=== PATIENT | male | born 1940 | race Caucasian/White ===

== ENCOUNTER → 2018-06-23 | Outpatient (CLI) | payer MEDICARE ==
--- NOTE | 2018-07-11 14:06 | ECHOF ---
Referral Reason:I10 Hypertension, E78.5 Hyperlipdemia MEASUREMENTS -------- HEIGHT: 172.7 cm WEIGHT: 117.0 kg BP: 132/102 RVIDd: 3.4 cm (< 3.3) IVSd: 1.4 cm (0.6 - 1.1) LVIDd: 5.7 cm (3.9 - 5.3) LVPWd: 1.4 cm (0.6 - 1.1) IVSs: 2.0 cm LVIDs: 4.2 cm LVPWs: 1.8 cm LA Diam: 3.5 cm (2.7 - 3.8) LAESV Index (A-L): 24.52 ml/m Ao Diam: 3.9 cm (2.0 - 3.7) AV Cusp: 2.2 cm (1.5 - 2.6) MV EXCURSION: 16.226 mm (> 18.000) MV EF SLOPE: 68 mm/s (70 - 150) EPSS: 1.0 cm MV E Nito: 0.54 m/s MV DecT: 298 ms MV A Nito: 1.09 m/s MV E/A Ratio: 0.49 AV maxP.87 mmHg AV meanP.75 mmHg RAP: 5.00 mmHg RVSP: 22.70 mmHg FINDINGS -------- Sinus rhythm. This was a technically adequate study. The left ventricular size is normal. There is moderate concentric left ventricular hypertrophy. O verall left ventricular systolic function is low-normal with, an EF between 50 - 55 %. The right ventricle is mildly enlarged. Normal LA size by volume 22+/-6 ml/m2. The right atrium is normal in size. There is mild aortic valve sclerosis. The mitral valve is normal. Mild tricuspid regurgitation present. Right ventricular systolic pressure is normal at < 35 mmHg. Trace/mild (physiologic) pulmonic regurgitation. The aortic root is dilated measuring 3.9cm. IVC Not well visulized. There is no pericardial effusion. CONCLUSIONS -------- 1. Sinus rhythm. 2. This was a technically adequate study. 3. The left ventricular size is normal. 4. There is moderate concentric left ventricular hypertrophy. 5. Overall left ventricular systolic function is low-normal with, an EF between 50 - 55 %. 6. The right ventricle is mildly enlarged. 7. Normal LA size by volume 22+/-6 ml/m2. 8. The right atrium is normal in size. 9. There is mild aortic valve sclerosis. 10. The mitral valve is normal. 11. Mild tricuspid regurgitation present. 12. Right ventricular systolic pressure is normal at < 35 mmHg. 13. Trace/mild (physiologic) pulmonic regurgitation. 14. The aortic root is dilated measuring 3.9cm. 15. IVC Not well visulized. 16. There is no pericardial effusion. SENIOR MANUFACTURING TEST ENGINEER: Marlena Thomas RDCS
== END ==
LOC: RADECHMAIN 15:38
PROVIDERS: ATTEND Internal Medicine Cardiovascular Disease
DX: I11.9 Hypertensive heart disease without heart failure (principal); I35.8 Other nonrheumatic aortic valve disorders; I07.1 Rheumatic tricuspid insufficiency; I37.1 Nonrheumatic pulmonary valve insufficiency
CPT/HCPCS: 93306

== ENCOUNTER 2020-12-22 06:24 | Inpatient (IN) | payer MEDICARE ==
[2020-12-22] MEDS ORDERED: ASPIRIN 81 MG PO STA (06:49)
[2020-12-22] MEDS ORDERED: LABETALOL 5 MG/ML VIAL MDV IVP STA (06:51)
--- NOTE | 2020-12-22 06:54 | ED ---
General Adult HPI <Lupillo Thacker - Last Filed: 12/22/20 08:19> - General Source: patient Mode of arrival: ambulatory Limitations: no limitations <Mike Regalado - Last Filed: 12/22/20 08:25> - General Chief complaint: Chest Pain Stated complaint: Chest Pain Time Seen by Provider: 12/22/20 06:33 - History of Present Illness Initial comments: 80-year-old male with a past medical history of hypertension presents to the emergency room for a chief complaint of chest pain. Patient reports he developed a left-sided chest pain that started approximately 6 hours prior to arrival. States it is sharp in nature. Patient does admit to rates the left shoulder. Patient denies nausea or diaphoresis. Does admit to slight shortness of breath. Patient states he always has high blood pressure in the 170-200 systolic. States he takes his medication but it does not seem to do anything.Patient has no other complaints at this time including abdominal pain, nausea or vomiting, headache, or visual changes. (Mike Regalado) - Related Data Home Medications Medication Instructions Recorded Confirmed Carvedilol [Coreg] 6.25 mg PO BID 12/22/20 12/22/20 Furosemide [Lasix] 20 mg PO DAILY 12/22/20 12/22/20 Olmesartan [Benicar] 20 mg PO DAILY 12/22/20 12/22/20 Allergies Allergy/AdvReac Type Severity Reaction Status Date / Time No Known Allergies Allergy Verified 12/22/20 08:17 Review of Systems ROS Other: All systems not noted in ROS Statement are negative. <Lupillo Thacker - Last Filed: 12/22/20 08:19> ROS Other: All systems not noted in ROS Statement are negative. <Mike Regalado - Last Filed: 12/22/20 08:25> ROS Statement: Those systems with pertinent positive or pertinent negative responses have been documented in the HPI. Past Medical History Past Medical History: Cancer, Hypertension Additional Past Medical History / Comment(s): ? SKIN CANCER ON SCALP REMOVED, STATES SOB WITH WALKING., OCCASIONAL CONSTIPATION. History of Any Multi-Drug Resistant Organisms: None Reported Past Surgical History: Back Surgery Past Anesthesia/Blood Transfusion Reactions: No Reported Reaction Past Psychological History: No Psychological Hx Reported Smoking Status: Former smoker Past Alcohol Use History: None Reported Past Drug Use History: None Reported - Past Family History Mother Family Medical History: Cancer Additional Family Medical History / Comment(s): BOWEL CANCER Father Family Medical History: Deep Vein Thrombosis (DVT) <Mike Regalado - Last Filed: 12/22/20 08:25> General Exam Limitations: no limitations General appearance: alert, in no apparent distress Head exam: Present: atraumatic, normocephalic, normal inspection Eye exam: Present: normal appearance, PERRL, EOMI. Absent: scleral icterus, conjunctival injection, periorbital swelling ENT exam: Present: normal exam, mucous membranes moist Neck exam: Present: normal inspection, full ROM. Absent: tenderness, meningismus, lymphadenopathy Respiratory exam: Present: normal lung sounds bilaterally. Absent: respiratory distress, wheezes, rales, rhonchi, stridor Cardiovascular Exam: Present: regular rate, normal rhythm, normal heart sounds. Absent: systolic murmur, diastolic murmur, rubs, gallop, clicks GI/Abdominal exam: Present: soft, normal bowel sounds. Absent: distended, tenderness, guarding, rebound, rigid Neurological exam: Present: alert <Mike Regalado - Last Filed: 12/22/20 08:25> Course Vital Signs 12/22/20 12/22/20 12/22/20 06:26 06:33 06:43 Temperature 97.6 F Pulse Rate 90 88 87 Pulse Rate [ Director Economic ] Respiratory 18 17 18 Rate Blood Pressure 206/157 189/151 188/139 O2 Sat by Pulse 94 L 96 97 Oximetry 12/22/20 12/22/20 12/22/20 06:48 07:37 08:06 Temperature Pulse Rate 96 90 Pulse Rate [ 88 Director Economic ] Respiratory 18 18 18 Rate Blood Pressure 162/133 159/85 O2 Sat by Pulse 97 97 Oximetry EKG Findings - EKG Comments: EKG Findings:: Atrial fibrillation with RVR, ventricular rate 123, QRS duration 94, QTC 498 <Mike Regalado - Last Filed: 12/22/20 08:25> Medical Decision Making - Lab Data Result diagrams: 12/22/20 06:52 12/22/20 06:52 <Lupillo Thacker - Last Filed: 12/22/20 08:19> - Lab Data Result diagrams: 12/22/20 06:52 12/22/20 06:52 <Mike Regalado - Last Filed: 12/22/20 08:25> - Medical Decision Making Patient reevaluated and reexamined by myself, Dr. Thacker. Patient resting comf ortably in bed. Heart rate improved to 96. Blood pressure 152 systolic. Patient and family updated on results and plan. I do agree with PA findings. This includes diagnostic interpretation and treatment plan. air sampling and monitoring shows A. fib with rate of 96. Patient was placed on nurse monitoring to evaluate for arrhythmias. (Lupillo Thacker) Patient presents very hypertensive with an initial blood pressure of 206/157. He was given 10 of labetalol and started on a 5 mg drip of Cardizem. This did improve his blood pressure slowly. EKG did show atrial fibrillation with RVR with a ventricular rate of 123. This is new onset for patient. CBC CMP unremarkable. Troponin 0.037. BNP 1350. Chest x-ray showed a small left pleural effusion. Patient started on low-dose heparin. Patient admitted to Dr. Bledsoe, does accept admission and requests patient be started on Lopressor 50 mg twice a day. Cardiology consulted. (Mike Regalado) - Lab Data Lab Results 12/22/20 12/22/20 12/22/20 Range/Units 06:52 06:52 06:52 WBC 12.1 H (3.8-10.6) k/uL RBC 5.68 (4.30-5.90) m/uL Hgb 16.4 (13.0-17.5) gm/dL Hct 49.3 (39.0-53.0) % MCV 86.8 (80.0-100.0) fL MCH 28.8 (25.0-35.0) pg MCHC 33.1 (31.0-37.0) g/dL RDW 14.6 (11.5-15.5) % Plt Count 283 (150-450) k/uL MPV 7.7 Neutrophils % 77 % Lymphocytes % 12 % Monocytes % 6 % Eosinophils % 3 % Basophils % 0 % Neutrophils # 9.4 H (1.3-7.7) k/uL Lymphocytes # 1.5 (1.0-4.8) k/uL Monocytes # 0.7 (0-1.0) k/uL Eosinophils # 0.3 (0-0.7) k/uL Basophils # 0.0 (0-0.2) k/uL PT 11.2 (9.0-12.0) sec INR 1.1 (<1.2) APTT 25.5 (22.0-30.0) sec Sodium 141 (137-145) mmol/L Potassium 3.9 (3.5-5.1) mmol/L Chloride 108 H (98-107) mmol/L Carbon Dioxide 21 L (22-30) mmol/L Anion Gap 12 mmol/L BUN 23 H (9-20) mg/dL Creatinine 1.22 (0.66-1.25) mg/dL Est GFR (CKD-EPI)AfAm 66 (>60 ml/min/1.73 sqM) Est GFR (CKD-EPI)NonAf 57 (>60 ml/min/1.73 sqM) Glucose 126 H (74-99) mg/dL Calcium 10.0 (8.4-10.2) mg/dL Magnesium 1.9 (1.6-2.3) mg/dL Total Bilirubin 1.2 (0.2-1.3) mg/dL AST 34 (17-59) U/L ALT 29 (4-49) U/L Alkaline Phosphatase 80 (38-126) U/L Troponin I (0.000-0.034) ng/mL NT-Pro-B Natriuret Pep pg/mL Total Protein 7.4 (6.3-8.2) g/dL Albumin 4.6 (3.5-5.0) g/dL 12/22/20 12/22/20 Range/Units 06:52 06:52 WBC (3.8-10.6) k/uL RBC (4.30-5.90) m/uL Hgb (13.0-17.5) gm/dL Hct (39.0-53.0) % MCV (80.0-100.0) fL MCH (25.0-35.0) pg MCHC (31.0-37.0) g/dL RDW (11.5-15.5) % Plt Count (150-450) k/uL MPV Neutrophils % % Lymphocytes % % Monocytes % % Eosinophils % % Basophils % % Neutrophils # (1.3-7.7) k/uL Lymphocytes # (1.0-4.8) k/uL Monocytes # (0-1.0) k/uL Eosinophils # (0-0.7) k/uL Basophils # (0-0.2) k/uL PT (9.0-12.0) sec INR (<1.2) APTT (22.0-30.0) sec Sodium (137-145) mmol/L Potassium (3.5-5.1) mmol/L Chloride (98-107) mmol/L Carbon Dioxide (22-30) mmol/L Anion Gap mmol/L BUN (9-20) mg/dL Creatinine (0.66-1.25) mg/dL Est GFR (CKD-EPI)AfAm (>60 ml/min/1.73 sqM) Est GFR (CKD-EPI)NonAf (>60 ml/min/1.73 sqM) Glucose (74-99) mg/dL Calcium (8.4-10.2) mg/dL Magnesium (1.6-2.3) mg/dL Total Bilirubin (0.2-1.3) mg/dL AST (17-59) U/L ALT (4-49) U/L Alkaline Phosphatase (38-126) U/L Troponin I 0.037 H* (0.000-0.034) ng/mL NT-Pro-B Natriuret Pep 1350 pg/mL Total Protein (6.3-8.2) g/dL Albumin (3.5-5.0) g/dL Critical Care Time Critical Care Time: Yes (33) <Mike Regalado - Last Filed: 12/22/20 08:25> Critical Care Time: 33 minutes of critical care time total is managing patient with multiple evaluations, multiple blood pressure evaluations, reviewing past medical history, treating hypertensive urgency, discussing case with admitting physician (Mike Regalado) Disposition <Lupillo Thacker - Last Filed: 12/22/20 08:19> Is patient prescribed a controlled substance at d/c from ED?: No Time of Disposition: 08:25 <Mike Regalado - Last Filed: 12/22/20 08:25> Clinical Impression: Chest pain, Hypertensive urgency, New onset atrial fibrillation, Elevated troponin Disposition: ADMITTED IP TO THIS HOSP Referrals: Isiah Appiah MD [Primary Care Provider] - 1-2 days
[2020-12-22 07:04] LABS: Basophils % (A) 0 %; Eosinophils # (A) 0.3 k/uL (0-0.7); Eosinophils % (A) 3 %; HCT 49.3 % (39.0-53.0); HGB 16.4 gm/dL (13.0-17.5); Lymphocytes # (A) 1.5 k/uL (1.0-4.8); Lymphocytes % (A) 12 %; MCH 28.8 pg (25.0-35.0); MCHC 33.1 g/dL (31.0-37.0); MCV 86.8 fL (80.0-100.0); Mean Platelet Volume 7.7; Monocytes # (A) 0.7 k/uL (0-1.0); Monocytes % (A) 6 %; Neutrophils # (A) 9.4 k/uL (1.3-7.7); Neutrophils % (A) 77 %; Platelet Count 283 k/uL (150-450); RBC 5.68 m/uL (4.30-5.90); RDW 14.6 % (11.5-15.5); WBC 12.1 k/uL (3.8-10.6)
[2020-12-22 07:17] LABS: Albumin 4.6 g/dL (3.5-5.0); Magnesium 1.9 mg/dL (1.6-2.3); Potassium 3.9 mmol/L (3.5-5.1); Total Bilirubin 1.2 mg/dL (0.2-1.3); Total Protein 7.4 g/dL (6.3-8.2)
--- NOTE | 2020-12-22 07:22 | XR ---
EXAMINATION TYPE: XR chest 2V DATE OF EXAM: 12/22/2020 COMPARISON: Chest x-ray May 04, 2017 HISTORY: Chest pain. TECHNIQUE: Frontal and lateral views of the chest are obtained. FINDINGS: There is slightly more prominent small left pleural effusion and/or pleural thickening. Ri ght lung remains clear. The cardiac silhouette size is stable and mildly enlarged. Postsurgical downey e to mid thoracic spine redemonstrated. IMPRESSION: Mild cardiomegaly with small to tiny left pleural effusion.
[2020-12-22] MEDS: DILTIAZEM 125 MG in SODIUM CHLORIDE 0.9% 100 ML IV SCH (07:36)
[2020-12-22 08:01] LABS: INR 1.1 (<1.2); Partial Thromboplastin Time 25.5 sec (22.0-30.0); Prothrombin Time 11.2 sec (9.0-12.0)
[2020-12-22] MEDS ORDERED: HEPARIN SODIUM 1,000 UN/ML (10ML VL) IV ONE (08:19)
[2020-12-22] MEDS: HEPARIN SOD,PORK IN 0.45% NACL 25,000 UNIT in 0.45% NACL 1 250ML.BAG IV SCH (08:39)
[2020-12-22] MEDS: FUROSEMIDE 20 MG TAB PO SCH (09:37)
[2020-12-22] MEDS: LOSARTAN 50 MG TAB PO SCH (09:37)
--- NOTE | 2020-12-22 10:57 | P.CRDCN ---
History of Present Illness History of present illness: HISTORY OF PRESENTING ILLNESS This is a pleasant 80-year-old male past medical history significant for hypertension, dyslipidemia former nicotine dependence, former alcohol use quit 40 years ago. 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 We have been asked to see in consultation for chest pain and new onset atrial fibrillation with rapid ventricular response. Patient is seen and examined in the emergency Department, no acute distress, with the bedside. Patient presents emergency department today after having an episode of left-sided chest pain. He describes the chest pain is sharp, nonradiating, nonexertional. He states it is similar to cast pain since that lasted about 4-5 hours, after he went to the bathroom and had a bowel movement his chest pain subsided. Denies any aggravating or alleviating factors. He did not take anything for the pain. He denies associated shortness of breath, palpitations, lightheadedness, dizziness, syncope, nausea, diaphoresis. However lately he states that he's been short of breath for many years now and has chronic dyspnea on exertion. He also states that he's been having difficulty controlling his blood pressure for some time now. He states that they've tried numerous antihypertensives. He denies a history of diabetes, stroke, MA or atrial fibrillation. He currently does not smoke or drink alcohol. Current home cardiac medications include Olmesartan 20 mg daily, Lasix 20 mg daily, carvedilol 6.25 mg twice a day. On admission patient started on IV Cardizem drip and IV heparin. Patient denies history of bleeding issues. DIAGNOSTICS EKG reveals atrial fibrillation with rapid ventricular response, heart rate 123, nonspecific STT wave abnormalities. No prior EKG to compare. Telemetry tracings indicate atrial fibrillation with better controlled rates heart rates 90-100 Chest xray slightly more prominent small left pleural effusion, cardiac silhouette is mildly enlarged. Laboratory reviewed, WBC 12.1, hemoglobin 16.4, platelets 283, sodium 141, potassium 3.9, BUN 23, serum creatinine 1.2, amylase 1.9, troponin elevated 0.037, proBNP 1350 REVIEW OF SYSTEMS At the time of my exam: CONSTITUTIONAL: Denies fever or chills. CARDIOVASCULAR: Positive chest pain, positive breath, positive dyspnea on exertion Denies orthopnea, PND or palpitations. RESPIRATORY: Denies cough. GASTROINTESTINAL: Denies abdominal pain, diarrhea, constipation, nausea or vomiting. MUSCULOSKELETAL: Denies myalgias. NEUROLOGIC: Denies numbness, tingling, headacbe or weakness. ENDOCRINE: Denies fatigue, weight change, polydipsia or polyurina. GENITOURINARY: Denies burning, hematuria or urgency with micturation. HEMATOLOGIC: Denies history of anemia or bleeding. PHYSICAL EXAMINATION CONSTITUTIONAL: No apparent distress. HEENT: Head is normocephalic. Pupils are equal, round. Sclerae anicteric. Mucous membranes of the mouth are moist. No JVD. No carotid bruit. CHEST EXAMINATION: Lungs are clear to auscultation. No chest wall tenderness is noted on palpation or with deep breathing. HEART EXAMINATION: Irregular rate and rhythm. S1, S2 heard. No murmurs, gallops or rub. ABDOMEN: Soft, nontender. Positive bowel sounds. EXTREMITIES: 2+ peripheral pulses, no lower extremity edema and no calf tenderness. SKIN: intact NEUROLOGIC EXAMINATION: Patient is awake, alert and oriented x3. ASSESSMENT Chest pain, atypical New onset paroxysmal atrial fibrillation -[id number] score 3 Hypertension Dyslipidemia Obesity PLAN -Trend troponin, Repeat EKG -Obtain 2D echocardiogram -Continue Cardizem drip -Continue metoprolol tartrate 50mg BID -Continue Losartan 100mg daily and Lasix 20mg daily -Will continue IV heparin drip while inpatient at this time, pending patient's chest pain and troponin trend. -Monitor renal function and electrolytes -Lipid panel -Atrial fibrillation, risk of stroke, and risk and benefit of anticoagulation was discussed with patient and . Patient is agreeable to anticoagulation at this time. -Check cost of Eliquis with case management- Per case management patient's Eliquis copay $40.50 -Further recommendations based on clinical course Nurse Practitioner note has been reviewed, I agree with a documented findings and plan of care. Patient was seen and examined. Past Medical History Past Medical History: Cancer, Hypertension Additional Past Medical History / Comment(s): ? SKIN CANCER ON SCALP REMOVED, STATES SOB WITH WALKING., OCCASIONAL CONSTIPATION. History of Any Multi-Drug Resistant Organisms: None Reported Past Surgical History: Back Surgery Past Anesthesia/Blood Transfusion Reactions: No Reported Reaction Past Psychological History: No Psychological Hx Reported Smoking Status: Former smoker Past Alcohol Use History: None Reported Past Drug Use History: None Reported - Past Family History Mother Family Medical History: Cancer Additional Family Medical History / Comment(s): BOWEL CANCER Father Family Medical History: Deep Vein Thrombosis (DVT) Medications and Allergies Home Medications Medication Instructions Recorded Confirmed Type Apixaban [Eliquis] 5 mg PO BID 30 Days #60 tab 12/22/20 Rx Carvedilol [Coreg] 6.25 mg PO BID 12/22/20 12/22/20 History Furosemide [Lasix] 20 mg PO DAILY 12/22/20 12/22/20 History Olmesartan [Benicar] 20 mg PO DAILY 12/22/20 12/22/20 History Allergies Allergy/AdvReac Type Severity Reaction Status Date / Time No Known Allergies Allergy Verified 12/22/20 08:17 Physical Exam Vitals: Vital Signs Temp Pulse Pulse Resp BP Pulse Ox 12/22/20 09:00 88 18 123/87 97 12/22/20 08:06 90 18 159/85 97 12/22/20 07:37 96 18 162/133 97 12/22/20 06:48 88 18 12/22/20 06:43 87 18 188/139 97 12/22/20 06:33 88 17 189/151 96 12/22/20 06:26 97.6 F 90 18 206/157 94 L Intake and Output 12/21/20 12/22/20 12/22/20 22:59 06:59 14:59 Other: Weight 106.594 kg Results 12/22/20 06:52 12/22/20 06:52 Cardiac Enzymes 12/22/20 12/22/20 Range/Units 06:52 06:52 AST 34 (17-59) U/L Troponin I 0.037 H* (0.000-0.034) ng/mL Coagulation 12/22/20 Range/Units 06:52 PT 11.2 (9.0-12.0) sec APTT 25.5 (22.0-30.0) sec CBC 12/22/20 Range/Units 06:52 WBC 12.1 H (3.8-10.6) k/uL RBC 5.68 (4.30-5.90) m/uL Hgb 16.4 (13.0-17.5) gm/dL Hct 49.3 (39.0-53.0) % Plt Count 283 (150-450) k/uL Comprehensive Metabolic Panel 12/22/20 Range/Units 06:52 Sodium 141 (137-145) mmol/L Potassium 3.9 (3.5-5.1) mmol/L Chloride 108 H (98-107) mmol/L Carbon Dioxide 21 L (22-30) mmol/L BUN 23 H (9-20) mg/dL Creatinine 1.22 (0.66-1.25) mg/dL Glucose 126 H (74-99) mg/dL Calcium 10.0 (8.4-10.2) mg/dL AST 34 (17-59) U/L ALT 29 (4-49) U/L Alkaline Phosphatase 80 (38-126) U/L Total Protein 7.4 (6.3-8.2) g/dL Albumin 4.6 (3.5-5.0) g/dL Current Medications Generic Name Dose Route Start Last Admin Trade Name Freq PRN Reason Stop Dose Admin Aspirin 325 mg 12/23/20 09:00 Aspirin 325 Mg Tab PO DAILY KENRICK Furosemide 20 mg 12/22/20 09:00 12/22/20 09:37 Furosemide 20 Mg Tab PO 20 mg DAILY KENRICK Administration Heparin Sodium (Porcine) 0 unit 12/22/20 08:19 Heparin Sodium 1,000 Un/Ml (10ml Vl) IV PER PROTOCOL PRN Low PTT Protocol Diltiazem HCl 125 mg/ Sodium 125 mls @ 5 mls/hr 12/22/20 07:15 12/22/20 07:36 Chloride IV 5 mg/hr .Q24H KENRICK 5 mls/hr Administration 5 MG/HR Heparin Sodium/Sodium Chloride 250 mls @ 10 mls/hr 12/22/20 08:30 12/22/20 08:39 25,000 unit/ Sodium Chloride IV 9.381 units/kg/hr .Q24H KENRICK 10 mls/hr Administration Protocol 9.381 UNITS/KG/HR Losartan Potassium 100 mg 12/22/20 09:00 12/22/20 09:37 Losartan 50 Mg Tab PO 100 mg DAILY KENRICK Administration Metoprolol Tartrate 50 mg 12/22/20 19:00 Metoprolol Tartrate 50 Mg Tab PO BID KENRICK Intake and Output 12/21/20 12/22/20 12/22/20 22:59 06:59 14:59 Other: Weight 106.594 kg 12/22/20 06:52 12/22/20 06:52
--- NOTE | 2020-12-22 17:04 | P.HPIM ---
History of Present Illness H&P Date: 12/22/20 Chief Complaint: Chest pain History of presenting complaint: This is a pleasant 80-year-old patient who follows with Dr. Appiah. Chronic stable medical conditions include hypertension, constipation, chronic low back pain from arthritis. Patient lost that the low some left-sided chest pain he described simply as pain. Nausea for good 4-5 hours. Did radiate to the left shoulder. Patient had some shortness of breath. No dizziness or lightheadedness. No perspiration. No edema. Appetite is fair. Because of his back uses a cane to get about. Patient has a problem with constipation having a bowel movement every 3-4 days. No fever no chills. Patient initial blood patient ER was 206/157. Was given IV labetalol. Patient also found to be in atrial fibrillation uncontrolled. Put on a Cardizem drip. Review of systems: GEN.: Tired EYES: None HEENT: None NECK: None RESPIRATORY: As above CARDIOVASCULAR: None GASTROINTESTINAL: As above] GENITOURINARY: None MUSCULOSKELETAL: Joint pains including the lower back LYMPHATICS: None HEMATOLOGICAL: None PSYCHIATRY: None NEUROLOGICAL: None Past medical history to include: Hypertension, constipation, arthritis Social history: . Did drink excessive alcohol in the past. Smoked for about 20 years stopped smoking about 40 years ago. 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 Family history: Bowel cancer Physical examination: VITAL SIGNS: 97.6, 90, 18, 206/157, 94% room air upon presentation GENERAL: BMI 34.7, reclining in bed, awake. EYES: Pupils equal. Conjunctiva normal. HEENT: External appearance of nose and ears normal, oral cavity grossly normal. NECK: JVD not raised; masses not palpable. HEART: First and second heart sounds are normal; no edema. LUNGS: Respiratory rate normal; clear to auscultation. MUSCULAR skeletal: Evidence of OA ABDOMEN: Soft, nontender, liver spleen not palpable, no masses palpable. PSYCH: Alert and oriented x3; mood and affect normal. NEUROLOGICAL: Cranial nerves grossly intact; no facial asymmetry, power and sensation grossly intact. LYMPHATICS: No lymph nodes palpable in the axilla and neck INVESTIGATIONS, reviewed in the clinical context: WBC 12.1 hemoglobin 16.4 platelets 283 potassium 3.9 creatinine 1.2 to Troponin I 0.037, 0.027, 0.025 EKG tracing personally reviewed by me-atrial flutter with a ventricular rate of 123. Possible nonspecific ST segment changes Chest x-ray film personally reviewed by me-cardiomegaly Assessment and plan: -Possible acute non-Q wave MN in a patient with risk factors include, age, ex- smoker, hypertension. Aspirin, Cozaar, Lopressor -Hypertensive urgency Given IV labetalol in the ER. Lopressor 50 mg twice a day added. Patient also some Cardizem drip for atrial flutter -New onset atrial flutter with rapid ventricular rate IV heparin, Cardizem drip, Lopressor 50 mg twice a day -Cardiomegaly on chest x-ray. Assess LV function. 2-D echocardiogram -Primary osteoarthritis multiple joints Pain medications as needed -Obesity BMI 34.7 Weight loss measures and follow with PCP Patient IV heparin, IV Cardizem drip, Lopressor. 2-D echocardiogram. Cardiology consulted. Care was discussed with the patient. Questions answered. Past Medical History Past Medical History: Cancer, Hypertension Additional Past Medical History / Comment(s): ? SKIN CANCER ON SCALP REMOVED, STATES SOB WITH WALKING., OCCASIONAL CONSTIPATION. History of Any Multi-Drug Resistant Organisms: None Reported Past Surgical History: Back Surgery Past Anesthesia/Blood Transfusion Reactions: No Reported Reaction Past Psychological History: No Psychological Hx Reported Smoking Status: Former smoker Past Alcohol Use History: None Reported Past Drug Use History: None Reported - Past Family History Mother Family Medical History: Cancer Additional Family Medical History / Comment(s): BOWEL CANCER Father Family Medical History: Deep Vein Thrombosis (DVT) Medications and Allergies Home Medications Medication Instructions Recorded Confirmed Type Apixaban [Eliquis] 5 mg PO BID 30 Days #60 tab 12/22/20 Rx Carvedilol [Coreg] 6.25 mg PO BID 12/22/20 12/22/20 History Furosemide [Lasix] 20 mg PO DAILY 12/22/20 12/22/20 History Olmesartan [Benicar] 20 mg PO DAILY 12/22/20 12/22/20 History Allergies Allergy/AdvReac Type Severity Reaction Status Date / Time No Known Allergies Allergy Verified 12/22/20 08:17 Physical Exam Vitals: Vital Signs Temp Pulse Pulse Resp BP Pulse Ox 12/22/20 09:00 88 18 123/87 97 12/22/20 08:06 90 18 159/85 97 12/22/20 07:37 96 18 162/133 97 12/22/20 06:48 88 18 12/22/20 06:43 87 18 188/139 97 12/22/20 06:33 88 17 189/151 96 12/22/20 06:26 97.6 F 90 18 206/157 94 L Intake and Output 12/21/20 12/22/20 12/22/20 22:59 06:59 14:59 Other: Weight 106.594 kg Results CBC & Chem 7: 12/22/20 06:52 12/22/20 06:52 Labs: Abnormal Lab Results - Last 24 Hours (Table) 12/22/20 12/22/20 12/22/20 Range/Units 06:52 06:52 06:52 WBC 12.1 H (3.8-10.6) k/uL Neutrophils # 9.4 H (1.3-7.7) k/uL Chloride 108 H (98-107) mmol/L Carbon Dioxide 21 L (22-30) mmol/L BUN 23 H (9-20) mg/dL Glucose 126 H (74-99) mg/dL Troponin I 0.037 H* (0.000-0.034) ng/mL
[2020-12-22] MEDS: HEPARIN SODIUM 1,000 UN/ML (10ML VL) IV PRN (17:30)
--- NOTE | 2020-12-22 18:22 | ECHOF ---
Referral Reason:LV function, new a fib MEASUREMENTS -------- HEIGHT: 175.3 cm WEIGHT: 106.6 kg BP: 123/87 RVIDd: 3.8 cm (< 3.3) IVSd: 1.6 cm (0.6 - 1.1) LVIDd: 5.6 cm (3.9 - 5.3) LVPWd: 1.6 cm (0.6 - 1.1) IVSs: 2.2 cm LVIDs: 3.8 cm LVPWs: 1.9 cm LA Diam: 4.2 cm (2.7 - 3.8) LAESV Index (A-L): 43.63 ml/m Ao Diam: 3.9 cm (2.0 - 3.7) AV Cusp: 2.1 cm (1.5 - 2.6) MV EXCURSION: 19.132 mm (> 18.000) MV EF SLOPE: 153 mm/s (70 - 150) EPSS: 1.3 cm AV maxP.62 mmHg AV meanP.04 mmHg RAP: 5.00 mmHg RVSP: 35.30 mmHg FINDINGS -------- Atrial fibrillation. This was a technically adequate study. The left ventricular size is normal. There is moderate concentric left ventricular hypertrophy. O verall left ventricular systolic function is moderate-severely impaired with, an EF between 30 - 35 % . The right ventricle is mild to moderately enlarged. LA is severely dilated >40 ml/m2 The right atrial size is normal. Interatrial and interventricular septum intact. There is mild aortic valve sclerosis. Peak/mean gradient across the Aortic Valve is 11.62mmHg / 6.0 4mmHg. Mild mitral annular calcification present. Mild mitral regurgitation is present. The tricuspid valve appears structurally normal. Mild tricuspid regurgitation present. There is m ild pulmonary hypertension. The right ventricular systolic pressure, as measured by Doppler, is 35. 30mmHg. Trace/mild (physiologic) pulmonic regurgitation. The aortic root is dilated measuring 3.9cm. IVC Not well visulized. There is no pericardial effusion. CONCLUSIONS -------- 1. Atrial fibrillation. 2. There is moderate concentric left ventricular hypertrophy. 3. Overall left ventricular systolic function is moderate-severely impaired with, an EF between 30 - 35 %. 4. The right ventricle is mild to moderately enlarged. 5. LA is severely dilated >40 ml/m2 6. There is mild aortic valve sclerosis. 7. Peak/mean gradient across the Aortic Valve is 11.62mmHg / 6.04mmHg. 8. Mild mitral regurgitation is present. 9. Mild tricuspid regurgitation present. 10. There is mild pulmonary hypertension. 11. Trace/mild (physiologic) pulmonic regurgitation. 12. The aortic root is dilated measuring 3.9cm. 13. There is no pericardial effusion. ONLINE USER EXPERIENCE STRATEGIST: Marlena Thomas RDCS
[2020-12-22] MEDS ORDERED: METOPROLOL TARTRATE 50 MG TAB PO SCH (19:00)
[2020-12-22] MEDS: METOPROLOL TARTRATE 50 MG TAB PO SCH (21:09)
[2020-12-23] MEDS: HEPARIN SOD,PORK IN 0.45% NACL 25,000 UNIT in 0.45% NACL 1 250ML.BAG IV SCH ×2 (02:29→20:09)
[2020-12-23] MEDS ORDERED: cloNIDine HCL 0.1 MG TAB PO STA (05:20)
[2020-12-23] MEDS: DILTIAZEM 125 MG in SODIUM CHLORIDE 0.9% 100 ML IV SCH (07:45)
[2020-12-23] MEDS: LOSARTAN 50 MG TAB PO SCH (07:55)
[2020-12-23] MEDS: ASPIRIN 81 MG PO SCH (07:55)
[2020-12-23] MEDS: lisinopriL 20 MG TAB PO SCH ×2 (07:55)
[2020-12-23] MEDS: METOPROLOL TARTRATE 50 MG TAB PO SCH ×2 (07:55→20:09)
[2020-12-23] MEDS: FUROSEMIDE 20 MG TAB PO SCH (07:55)
[2020-12-23 08:02] LABS: Calcium 9.6 mg/dL (8.4-10.2); Potassium 3.9 mmol/L (3.5-5.1)
[2020-12-23] MEDS ORDERED: ASPIRIN 325 MG TAB PO SCH (09:00)
[2020-12-23] MEDS: amLODIPine 5 MG TAB PO SCH (12:16)
[2020-12-23] MEDS: FUROSEMIDE 10 MG/ML 4 ML VIAL IV SCH ×2 (12:16→20:09)
--- NOTE | 2020-12-23 12:55 | P.PN ---
Subjective This is a pleasant 80-year-old male past medical history significant for hypertension, dyslipidemia former nicotine dependence, former alcohol use quit 40 years ago. 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 We have been asked to see in consultation for chest pain and new onset atrial fibrillation with rapid ventricular response. Patient is seen and examined in the emergency Department, no acute distress, with the bedside. Patient presents emergency department today after having an episode of left-sided chest pain. He describes the chest pain is sharp, nonradiating, nonexertional. He states it is similar to cast pain since that lasted about 4-5 hours, after he went to the bathroom and had a bowel movement his chest pain subsided. Denies any aggravating or alleviating factors. He did not take anything for the pain. He denies associated shortness of breath, palpitations, lightheadedness, dizziness, syncope, nausea, diaphoresis. However lately he states that he's been short of breath for many years now and has chronic dyspnea on exertion. He also states that he's been having difficulty controlling his blood pressure for some time now. He states that they've tried numerous antihypertensives. He denies a history of diabetes, stroke, [place] or atrial fibrillation. He currently does not smoke or drink alcohol. Current home cardiac medications include Olmesartan 20 mg daily, Lasix 20 mg daily, carvedilol 6.25 mg twice a day. On admission patient started on IV Cardizem drip and IV heparin. Patient denies history of bleeding issues. EKG reveals atrial fibrillation with rapid ventricular response, heart rate 123, nonspecific STT wave abnormalities. No prior EKG to compare. 12/23/2020: Patient seen at bedside, no acute distress. He continues to be short of breath. Blood pressure 177/101, heart rate 69, afebrile, maintaining oxygen saturations on 2 L nasal cannula. Telemetry reviewed patient continues to be in atrial f ibrillation with better controlled rates heart rate 70s to 80s. His IV Cardizem has been stopped. Echocardiogram revealed EF at 30-35%, RV is mild to moderately enlarged, LA severely dilated, mild mitral regurgitation, mild tricuspid regurgitation, mild pulmonary hypertension. G reviewed sodium 142, potassium 3.9, BUN 25, serum creatinine 1.4. Additional troponins were negative 2. Patient currently maintained on aspirin 81 mg daily, PO Lasix 20mg, losartan 100 mg daily, Toprol tartrate 100 mg twice a day, lisinopril 20 mg twice a day. PHYSICAL EXAMINATION CONSTITUTIONAL: No apparent distress. HEENT: Neck Supple. mild JVD CHEST EXAMINATION: Lungs mild crackles bilaterally No chest wall tenderness is noted on palpation or with deep breathing. HEART EXAMINATION: Irregular rate and rhythm. S1, S2 heard. No murmurs, gallops or rub. ABDOMEN: Soft, nontender. Positive bowel sounds. EXTREMITIES: 2+ peripheral pulses, no lower extremity edema and no calf tenderness. NEUROLOGIC EXAMINATION: Patient is awake, alert and oriented x3. 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 -Monitor renal function and electrolytes -Lipid panel pending -Atrial fibrillation, risk of stroke, and risk and benefit of anticoagulation was discussed with patient and . Patient is agreeable to anticoagulation at this time. -Check cost of Eliquis with case management- Per case management patient's Eliquis copay $40.50 -Further recommendations based on clinical course Nurse Practitioner note has been reviewed, I agree with a documented findings and plan of care. Patient was seen and examined. Objective - Vital Signs Vital signs: Vital Signs Temp 98 F 12/23/20 12:00 Pulse 77 12/23/20 12:00 Resp 16 12/23/20 12:00 BP 156/91 12/23/20 12:00 Pulse Ox 95 12/23/20 03:14 Intake & Output 12/22/20 12/23/20 12/23/20 18:59 06:59 18:59 Intake Total 88.667 116.567 70.005 Balance 88.667 116.567 70.005 Weight 106.594 kg 109.1 kg Intake: Intake, IV Titration 88.667 116.567 70.005 Amount Heparin Sod,Pork in 0.45% 88.667 116.567 70.005 NaCl 25,000 unit In 0.45 % NaCl 1 250ml.bag @ 9. 381 UNITS/KG/HR 10 mls/hr IV .Q24H [facility] Rx#: [id number] Other: # Voids 1 - Labs CBC & Chem 7: 12/22/20 06:52 12/23/20 06:55 Labs: Abnormal Lab Results - Last 24 Hours (Table) 12/22/20 12/22/20 12/23/20 Range/Units 16:56 22:18 06:55 APTT 33.0 H 46.5 H (22.0-30.0) sec BUN 25 H (9-20) mg/dL Creatinine 1.40 H (0.66-1.25) mg/dL Glucose 115 H (74-99) mg/dL 12/23/20 Range/Units 06:55 APTT 46.9 H (22.0-30.0) sec BUN (9-20) mg/dL Creatinine (0.66-1.25) mg/dL Glucose (74-99) mg/dL
[2020-12-23 13:23] LABS: Chol/HDL Ratio 4.61; LDL Cholesterol,Calculated 127.6 mg/dL (0.0-131.0); VLDL Calculation 20.4 mg/dL (5.00-40.00)
--- NOTE | 2020-12-23 16:57 | P.PN ---
Progress Note - Text Progress Note Date: 12/23/20 Chief Complaint: Chest pain History of presenting complaint: This is a pleasant 80-year-old patient who follows with Dr. Appiah. Chronic stable medical conditions include hypertension, constipation, chronic low back pain from arthritis. Patient lost that the low some left-sided chest pain he described simply as pain. Nausea for good 4-5 hours. Did radiate to the left shoulder. Patient had some shortness of breath. No dizziness or lightheadedness. No perspiration. No edema. Appetite is fair. Because of his back uses a cane to get about. Patient has a problem with constipation having a bowel movement every 3-4 days. No fever no chills. Patient initial blood patient ER was 206/157. Was given IV labetalol. Patient also found to be in atrial fibrillation uncontrolled. Put on a Cardizem drip. Admitted with accelerated hypertension, atrial fibrillation uncontrolled. Found to be in acute CHF. EF 30-35%. Placed on IV Lasix December 23: Blood pressure running high. Amlodipine added. No chest pain. Remains in atrial fibrillation. Heart rate in the 80s. Sitting up in a chair. Diet. Some shortness of breath. Started on IV Lasix. at the bedside Review of systems: Was done for constitutional, cardiovascular, GI, pulmonary. relevant finding as above Active Medications Amlodipine Besylate (Amlodipine 5 Mg Tab) 5 mg PO DAILY [facility] Last Admin: 12/23/20 12:16 Dose: 5 mg Documented by: Aspirin (Aspirin 81 Mg) 81 mg PO DAILY [facility] Last Admin: 12/23/20 07:55 Dose: 81 mg Documented by: Atorvastatin Calcium (Atorvastatin 40 Mg Tab) 40 mg PO DAILY [facility] Furosemide (Furosemide 10 Mg/Ml 4 Ml Vial) 40 mg IV Q12HR [facility] Last Admin: 12/23/20 12:16 Dose: 40 mg Documented by: Heparin Sodium (Porcine) (Heparin Sodium 1,000 Un/Ml (10ml Vl)) 0 unit IV PER PROTOCOL PRN; Protocol PRN Reason: Low PTT Last Admin: 12/22/20 17:30 Dose: 4,000 unit Documented by: Heparin Sodium/Sodium Chloride (25,000 unit/ Sodium Chloride) 250 mls @ 10 mls/hr IV .Q24H [facility]; Protocol Last Titration: 12/23/20 07:52 Dose: 12.2 units/kg/hr, 13.004 mls/hr Documented by: Losartan Potassium (Losartan 50 Mg Tab) 100 mg PO DAILY [facility] Last Admin: 12/23/20 07:55 Dose: 100 mg Documented by: Metoprolol Tartrate (Metoprolol Tartrate 50 Mg Tab) 100 mg PO BID [facility] Last Admin: 12/23/20 07:55 Dose: 100 mg Documented by: Past medical history to include: Hypertension, constipation, arthritis Social history: . Did drink excessive alcohol in the past. Smoked for about 20 years stopped smoking about 40 years ago. 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 Family history: Bowel cancer Physical examination: VITAL SIGNS: 98, 77, 16, 156/91, 95% on 2 L GENERAL: BMI 34.7, reclining in chair, awake EYES: Pupils equal. Conjunctiva normal. HEENT: External appearance of nose and ears normal, oral cavity grossly normal. NECK: JVD not raised; masses not palpable. HEART: Irregular heart sounds; no edema. LUNGS: Respiratory rate increased, decreased breath sounds MUSCULAR skeletal: Evidence of OA ABDOMEN: Soft, nontender, liver spleen not palpable, no masses palpable. PSYCH: Alert and oriented x3; mood and affect normal. NEUROLOGICAL: Cranial nerves grossly intact; no facial asymmetry, power and sensation grossly intact. INVESTIGATIONS, reviewed in the clinical context: 2-D echocardiogram: EF 30-35%. Moderate concentric LVH December 23: Potassium 3.9 creatinine 1.40 LDL 127 WBC 12.1 hemoglobin 16.4 platelets 283 potassium 3.9 creatinine 1.2 to Troponin I 0.037, 0.027, 0.025 EKG tracing personally reviewed by me-atrial flutter with a ventricular rate of 123. Possible nonspecific ST segment changes Chest x-ray film personally reviewed by in-cardiomegaly Assessment and plan: -Possible acute non-Q wave [place] in a patient with risk factors include, age, ex- smoker, hypertension. Aspirin, Cozaar, Lopressor -Accelerated hypertension: Uncontrolled Given IV labetalol in the ER. Increase Lopressor 100 mg twice a day . Cozaar 100 mg daily. Norvasc 5 mg daily added -New onset atrial flutter with rapid ventricular rate, now better controlled IV heparin, Cardizem drip-discontinued, Lopressor 100 mg twice a day -Acute congestive heart exacerbation from systolic dysfunction EF 30-35%: New diagnosis IV Lasix 40 mg every 12. Add Aldactone 25 mg a day -Primary osteoarthritis multiple joints Pain medications as needed -Obesity BMI 34.7 Weight loss measures and follow with PCP -IV heparin monitoring Follow PTT Continue IV heparin. Dose of Lopressor increased to 100 mg twice daily. Aldactone 25 mg daily added. IV Lasix 40 mg every 12. Discussed with patient and at the bedside.
[2020-12-23] MEDS: SPIRONOLACTONE 25 MG TAB PO SCH (17:35)
[2020-12-24] MEDS: LOSARTAN 50 MG TAB PO SCH (08:10)
[2020-12-24] MEDS: ATORVASTATIN 40 MG TAB PO SCH (08:10)
[2020-12-24] MEDS: METOPROLOL TARTRATE 50 MG TAB PO SCH ×2 (08:10→20:00)
[2020-12-24] MEDS: ASPIRIN 81 MG PO SCH (08:10)
[2020-12-24] MEDS: FUROSEMIDE 10 MG/ML 4 ML VIAL IV SCH ×2 (08:10→20:00)
[2020-12-24] MEDS: amLODIPine 5 MG TAB PO SCH (08:10)
[2020-12-24] MEDS: SPIRONOLACTONE 25 MG TAB PO SCH (08:10)
[2020-12-24 10:13] LABS: Calcium 9.9 mg/dL (8.4-10.2)
[2020-12-24 10:18] LABS: Potassium 2.8 mmol/L (3.5-5.1)
[2020-12-24] MEDS: HEPARIN SODIUM 1,000 UN/ML (10ML VL) IV PRN (10:33)
[2020-12-24] MEDS: POTASSIUM CHLORIDE ER 20 MEQ TAB.ER PO SCH ×3 (10:59→13:56)
[2020-12-24] MEDS ORDERED: cloNIDine 0.1 MG/24HR PATCH TRANSDERM SCH (11:00)
--- NOTE | 2020-12-24 13:29 | P.PN ---
Subjective Progress Note Date: 12/24/20 HISTORY OF PRESENT ILLNESS: his is a pleasant 80-year-old male past medical history significant for hypertension, dyslipidemia former nicotine dependence, former alcohol use quit 40 years ago. 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 We have been asked to see in consultation for chest pain and new onset atrial fibrillation with rapid ventricular response. Patient is seen and examined in the emergency Department, no acute distress, with the bedside. Patient presents emergency department today after having an episode of left-sided chest pain. He describes the chest pain is sharp, nonradiating, nonexertional. He states it is similar to cast pain since that lasted about 4-5 hours, after he went to the bathroom and had a bowel movement his chest pain subsided. Denies any aggravating or alleviating factors. He did not take anything for the pain. He denies associated shortness of breath, palpitations, lightheadedness, dizziness, syncope, nausea, diaphoresis. However lately he states that he's been short of breath for many years now and has chronic dyspnea on exertion. He also states that he's been having difficulty controlling his blood pressure for some time now. He states that they've tried numerous antihypertensives. He denies a history of diabetes, stroke, [place] or atrial fibrillation. He currently does not smoke or drink alcohol. Current home cardiac medications include Olmesartan 20 mg daily, Lasix 20 mg daily, carvedilol 6.25 mg twice a day. On admission patient started on IV Cardizem drip and IV heparin. Patient denies history of bleeding issues. EKG reveals atrial fibrillation with rapid ventricular response, heart rate 123, nonspecific STT wave abnormalities. No prior EKG to compare. 12/23/2020: Patient seen at bedside, no acute distress. He continues to be short of breath. Blood pressure 177/101, heart rate 69, afebrile, maintaining oxygen saturations on 2 L nasal cannula. Telemetry reviewed patient continues to be in atrial fibrillation with better controlled rates heart rate 70s to 80s. His IV Cardizem has been stopped. Echocardiogram revealed EF at 30-35%, RV is mild to moderately enlarged, LA severely dilated, mild mitral regurgitation, mild tricuspid regurgitation, mild pulmonary hypertension. G reviewed sodium 142, p otassium 3.9, BUN 25, serum creatinine 1.4. Additional troponins were negative 2. Patient currently maintained on aspirin 81 mg daily, PO Lasix 20mg, losartan 100 mg daily, Toprol tartrate 100 mg twice a day, lisinopril 20 mg twice a day. 12/24/2020 Patient examined this morning at the bedside. Patient denies chest pain. Patient continues to report shortness of breath. He remains on IV Lasix. He also remains on IV heparin. Telemetry reveals atrial fibrillation with controlled ventricular rate PHYSICAL EXAM: VITAL SIGNS: Reviewed. GENERAL: Well-developed in no acute distress. NECK: Supple. No JVD or thyromegaly LUNGS: Respirations even and unlabored. Lungs with bibasilar rales noted. HEART: Irregular rate and rhythm. S1 and S2 heard. EXTREMITIES: Normal range of motion. No clubbing or cyanosis. Peripheral pulses intact. 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 Will continue IV heparin due to cardiac catheterization. Patient will be started on Eliquis after his cardiac catheterization Further recommendations pending patient course Nurse practitioner note has been reviewed by physician. Signing provider agrees with the documented findings, assessment, and plan of care. Objective - Vital Signs Vital signs: Vital Signs Temp 98 F 12/24/20 11:36 Pulse 80 12/24/20 12:09 Resp 19 12/24/20 12:09 BP 157/74 12/24/20 11:36 Pulse Ox 97 12/24/20 11:36 Intake & Output 12/23/20 12/24/20 12/24/20 18:59 06:59 18:59 Intake Total 560.005 159.732 587.041 Balance 560.005 159.732 587.041 Weight 106.3 kg Intake: Intake, IV Titration 70.005 159.732 187.041 Amount Heparin Sod,Pork in 0.45% 70.005 159.732 187.041 NaCl 25,000 unit In 0.45 % NaCl 1 250ml.bag @ 9. 381 UNITS/KG/HR 10 mls/hr IV .Q24H [facility] Rx#: [id number] Oral 490 400 Other: Voiding Method Toilet Toilet # Voids 2 0 - Labs CBC & Chem 7: 12/22/20 06:52 12/24/20 08:44 Labs: Abnormal Lab Results - Last 24 Hours (Table) 12/24/20 12/24/20 Range/Units 08:44 08:44 APTT 40.8 H (22.0-30.0) sec Potassium 2.8 L (3.5-5.1) mmol/L BUN 31 H (9-20) mg/dL
--- NOTE | 2020-12-24 15:45 | P.PN ---
Progress Note - Text Progress Note Date: 12/24/20 Chief Complaint: Chest pain History of presenting complaint: This is a pleasant 80-year-old patient who follows with Dr. Appiah. Chronic stable medical conditions include hypertension, constipation, chronic low back pain from arthritis. Patient lost that the low some left-sided chest pain he described simply as pain. Nausea for good 4-5 hours. Did radiate to the left shoulder. Patient had some shortness of breath. No dizziness or lightheadedness. No perspiration. No edema. Appetite is fair. Because of his back uses a cane to get about. Patient has a problem with constipation having a bowel movement every 3-4 days. No fever no chills. Patient initial blood patient ER was 206/157. Was given IV labetalol. Patient also found to be in atrial fibrillation uncontrolled. Put on a Cardizem drip. Admitted with accelerated hypertension, atrial fibrillation uncontrolled. Found to be in acute CHF. EF 30-35%. Placed on IV Lasix December 23: Blood pressure running high. Amlodipine added. No chest pain. Remains in atrial fibrillation. Heart rate in the 80s. Sitting up in a chair. Diet. Some shortness of breath. Started on IV Lasix. at the bedside December 24: Sitting up in a chair. No chest pain. Plan is for cardiac catheterization on Saturday. Oral intake fair. Shortness of breath but her. Review of systems: Was done for constitutional, cardiovascular, GI, pulmonary. relevant finding as above Active Medications Amlodipine Besylate (Amlodipine 5 Mg Tab) 5 mg PO DAILY [facility] Last Admin: 12/24/20 08:10 Dose: 5 mg Documented by: Aspirin (Aspirin 81 Mg) 81 mg PO DAILY [facility] Last Admin: 12/24/20 08:10 Dose: 81 mg Documented by: Atorvastatin Calcium (Atorvastatin 40 Mg Tab) 40 mg PO DAILY [facility] Last Admin: 12/24/20 08:10 Dose: 40 mg Documented by: Clonidine HCl (Clonidine 0.1 Mg/24hr Patch) 1 patch TRANSDERM Q7D [facility] Last Admin: 12/24/20 11:25 Dose: 1 patch Documented by: Furosemide (Furosemide 10 Mg/Ml 4 Ml Vial) 40 mg IV Q12HR [facility] Last Admin: 12/24/20 08:10 Dose: 40 mg Documented by: Heparin Sodium (Porcine) (Heparin Sodium 1,000 Un/Ml (10ml Vl)) 0 unit IV PER PROTOCOL PRN; Protocol PRN Reason: Low PTT Last Admin: 12/24/20 10:33 Dose: 2,660 unit Documented by: Heparin Sodium/Sodium Chloride (25,000 unit/ Sodium Chloride) 250 mls @ 10 mls/hr IV .Q24H [facility]; Protocol Last Titration: 12/24/20 10:32 Dose: 14.07 units/kg/hr, 15 mls/hr Documented by: Losartan Potassium (Losartan 50 Mg Tab) 100 mg PO DAILY [facility] Last Admin: 12/24/20 08:10 Dose: 100 mg Documented by: Metoprolol Tartrate (Metoprolol Tartrate 50 Mg Tab) 100 mg PO BID [facility] Last Admin: 12/24/20 08:10 Dose: 100 mg Documented by: Spironolactone (Spironolactone 25 Mg Tab) 25 mg PO DAILY [facility] Last Admin: 12/24/20 08:10 Dose: 25 mg Documented by: Past medical history to include: Hypertension, constipation, arthritis Social history: . Did drink excessive alcohol in the past. Smoked for about 20 years stopped smoking about 40 years ago. 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 Conjunctiva normal. HEENT: External appearance of nose and ears normal, oral cavity grossly normal. NECK: JVD not raised; masses not palpable. HEART: Irregular heart sounds; no edema. LUNGS: Respiratory rate increased, decreased breath sounds MUSCULAR skeletal: Evidence of OA ABDOMEN: Soft, nontender, liver spleen not palpable, no masses palpable. PSYCH: Alert and oriented x3; mood and affect normal. NEUROLOGICAL: Cranial nerves grossly intact; no facial asymmetry, power and sensation grossly intact. INVESTIGATIONS, reviewed in the clinical context: December 24: Potassium 2.8 creatinine 1.16 magnesia 1.9 2-D echocardiogram: EF 30-35%. Moderate concentric LVH December 23: Potassium 3.9 creatinine 1.40 LDL 127 WBC 12.1 hemoglobin 16.4 platelets 283 potassium 3.9 creatinine 1.2 to Troponin I 0.037, 0.027, 0.025 EKG tracing personally reviewed by me-atrial flutter with a ventricular rate of 123. Possible nonspecific ST segment changes Chest x-ray film personally reviewed by me-cardiomegaly Assessment and plan: -acute non-Q wave [place] in a patient with risk factors include, age, ex-smoker, hypertension. Aspirin, Cozaar, Lopressor. IV heparin -Accelerated hypertension: Uncontrolled Given IV labetalol in the ER. Lopressor 100 mg twice a day . Cozaar 100 mg daily. Catapres patch 0.1. Amlodipine 5 mg daily. -New onset atrial flutter with rapid ventricular rate, now better controlled IV heparin, Cardizem drip-discontinued, Lopressor 100 mg twice a day -Acute congestive heart exacerbation from systolic dysfunction EF 30-35%: Slow to respond IV Lasix 40 mg every 12. Aldactone 25 mg a day -Primary osteoarthritis multiple joints Pain medications as needed -Obesity BMI 34.7 Weight loss measures and follow with PCP -IV heparin monitoring Follow PTT Continue IV heparin. Catapres 0.1 mg patch added today by cardiology. Follow BMP. Possible cardiac cath Saturday.
[2020-12-24] MEDS: HEPARIN SOD,PORK IN 0.45% NACL 25,000 UNIT in 0.45% NACL 1 250ML.BAG IV SCH (16:07)
[2020-12-25 08:49] LABS: Potassium 3.5 mmol/L (3.5-5.1)
[2020-12-25] MEDS: FUROSEMIDE 10 MG/ML 4 ML VIAL IV SCH (10:11)
[2020-12-25] MEDS: ASPIRIN 81 MG PO SCH (10:12)
[2020-12-25] MEDS: amLODIPine 5 MG TAB PO SCH (10:12)
[2020-12-25] MEDS: SPIRONOLACTONE 25 MG TAB PO SCH (10:12)
[2020-12-25] MEDS: METOPROLOL TARTRATE 50 MG TAB PO SCH ×3 (10:12→19:51)
[2020-12-25] MEDS: ATORVASTATIN 40 MG TAB PO SCH (10:12)
[2020-12-25] MEDS: LOSARTAN 50 MG TAB PO SCH (10:12)
--- NOTE | 2020-12-25 14:47 | P.PN ---
Subjective Progress Note Date: 12/25/20 HISTORY OF PRESENT ILLNESS: his is a pleasant 80-year-old male past medical history significant for hypertension, dyslipidemia former nicotine dependence, former alcohol use quit 40 years ago. 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 We have been asked to see in consultation for chest pain and new onset atrial fibrillation with rapid ventricular response. Patient is seen and examined in the emergency Department, no acute distress, with the bedside. Patient presents emergency department today after having an episode of left-sided chest pain. He describes the chest pain is sharp, nonradiating, nonexertional. He states it is similar to cast pain since that lasted about 4-5 hours, after he went to the bathroom and had a bowel movement his chest pain subsided. Denies any aggravating or alleviating factors. He did not take anything for the pain. He denies associated shortness of breath, palpitations, lightheadedness, dizziness, syncope, nausea, diaphoresis. However lately he states that he's been short of breath for many years now and has chronic dyspnea on exertion. He also states that he's been having difficulty controlling his blood pressure for some time now. He states that they've tried numerous antihypertensives. He denies a history of diabetes, stroke, IA or atrial fibrillation. He currently does not smoke or drink alcohol. Current home cardiac medications include Olmesartan 20 mg daily, Lasix 20 mg daily, carvedilol 6.25 mg twice a day. On admission patient started on IV Cardizem drip and IV heparin. Patient denies history of bleeding issues. EKG reveals atrial fibrillation with rapid ventricular response, heart rate 123, nonspecific STT wave abnormalities. No prior EKG to compare. 12/23/2020: Patient seen at bedside, no acute distress. He continues to be short of breath. Blood pressure 177/101, heart rate 69, afebrile, maintaining oxygen saturations on 2 L nasal cannula. Telemetry reviewed patient continues to be in atrial fibrillation with better controlled rates heart rate 70s to 80s. His IV Cardizem has been stopped. Echocardiogram revealed EF at 30-35%, RV is mild to moderately enlarged, LA severely dilated, mild mitral regurgitation, mild tricuspid regurgitation, mild pulmonary hypertension. G reviewed sodium 142, p otassium 3.9, BUN 25, serum creatinine 1.4. Additional troponins were negative 2. Patient currently maintained on aspirin 81 mg daily, PO Lasix 20mg, losartan 100 mg daily, Toprol tartrate 100 mg twice a day, lisinopril 20 mg twice a day. 12/24/2020 Patient examined this morning at the bedside. Patient denies chest pain. Patient continues to report shortness of breath. He remains on IV Lasix. He also remains on IV heparin. Telemetry reveals atrial fibrillation with controlled ventricular rate 12/25/2020 Patient examined at the bedside. Patient denies chest pain or pressure. He reports improvement in his shortness of breath. Patient's creatinine increased today to 1.58. He remains on IV Lasix. PHYSICAL EXAM: VITAL SIGNS: Reviewed. GENERAL: Well-developed in no acute distress. NECK: Supple. No JVD or thyromegaly LUNGS: Respirations even and unlabored. Lungs diminished HEART: Irregular rate and rhythm. S1 and S2 heard. EXTREMITIES: Normal range of motion. No clubbing or cyanosis. Peripheral pulses intact. 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 Begin oral Lasix 40 mg starting tomorrow Daily weights Accurate I&O Monitor kidney function Continue additional cardiac medications Clonidine patch for optimal blood pressure control Possible cardiac catheterization to be performed on Saturday depending on patient's kidney function Will continue IV heparin due to cardiac catheterization. Patient will be started on Eliquis after his cardiac catheterization Further recommendations pending patient course Nurse practitioner note has been reviewed by physician. Signing provider agrees with the documented findings, assessment, and plan of care. Objective - Vital Signs Vital signs: Vital Signs Temp 97.6 F 12/25/20 03:38 Pulse 90 12/25/20 03:38 Resp 19 12/25/20 03:38 BP 163/78 12/25/20 03:38 Pulse Ox 96 12/25/20 03:38 Intake & Output 12/24/20 12/25/20 12/25/20 18:59 06:59 18:59 Intake Total 907.498 360 Output Total 900 Balance 907.498 -900 360 Weight 105.8 kg Intake: Intake, IV Titration 267.498 Amount Heparin Sod,Pork in 0.45% 267.498 NaCl 25,000 unit In 0.45 % NaCl 1 250ml.bag @ 9. 381 UNITS/KG/HR 10 mls/hr IV .Q24H [facility] Rx#: [id number] Oral 640 360 Output: Urine 900 Other: Voiding Method Toilet Toilet # Voids 0 2 2 - Labs CBC & Chem 7: 12/22/20 06:52 12/25/20 07:22 Labs: Abnormal Lab Results - Last 24 Hours (Table) 12/24/20 12/25/20 12/25/20 Range/Units 16:48 07:22 07:22 APTT 50.4 H 57.4 H (22.0-30.0) sec BUN 39 H (9-20) mg/dL Creatinine 1.58 H (0.66-1.25) mg/dL
[2020-12-25] MEDS ORDERED: amLODIPine 5 MG TAB PO STA (14:50)
--- NOTE | 2020-12-25 14:53 | P.PN ---
Progress Note - Text Progress Note Date: 12/25/20 Chief Complaint: Chest pain History of presenting complaint: This is a pleasant 80-year-old patient who follows with Dr. Appiah. Chronic stable medical conditions include hypertension, constipation, chronic low back pain from arthritis. Patient lost that the low some left-sided chest pain he described simply as pain. Nausea for good 4-5 hours. Did radiate to the left shoulder. Patient had some shortness of breath. No dizziness or lightheadedness. No perspiration. No edema. Appetite is fair. Because of his back uses a cane to get about. Patient has a problem with constipation having a bowel movement every 3-4 days. No fever no chills. Patient initial blood patient ER was 206/157. Was given IV labetalol. Patient also found to be in atrial fibrillation uncontrolled. Put on a Cardizem drip. Admitted with accelerated hypertension, atrial fibrillation uncontrolled. Found to be in acute CHF. EF 30-35%. Placed on IV Lasix December 23: Blood pressure running high. Amlodipine added. No chest pain. Remains in atrial fibrillation. Heart rate in the 80s. Sitting up in a chair. Diet. Some shortness of breath. Started on IV Lasix. at the bedside December 24: Sitting up in a chair. No chest pain. Plan is for cardiac catheterization on Saturday. Oral intake fair. Shortness of breath but her. December 25: Sitting up. Comfortable. No chest pain. For cardiac catheterization tomorrow. at the bedside. Breathing stable. On IV Lasix. Review of systems: Was done for constitutional, cardiovascular, GI, pulmonary. relevant finding as above Active Medications Amlodipine Besylate (Amlodipine 5 Mg Tab) 5 mg PO DAILY [facility] Last Admin: 12/25/20 10:12 Dose: 5 mg Documented by: Aspirin (Aspirin 81 Mg) 81 mg PO DAILY [facility] Last Admin: 12/25/20 10:12 Dose: 81 mg Documented by: Atorvastatin Calcium (Atorvastatin 40 Mg Tab) 40 mg PO DAILY [facility] Last Admin: 12/25/20 10:12 Dose: 40 mg Documented by: Clonidine HCl (Clonidine 0.1 Mg/24hr Patch) 1 patch TRANSDERM Q7D [facility] Last Admin: 12/24/20 11:25 Dose: 1 patch Documented by: Furosemide (Furosemide 40 Mg Tab) 40 mg PO DAILY [facility] Heparin Sodium (Porcine) (Heparin Sodium 1,000 Un/Ml (10ml Vl)) 0 unit IV PER PROTOCOL PRN; Protocol PRN Reason: Low PTT Last Admin: 12/24/20 10:33 Dose: 2,660 unit Documented by: Heparin Sodium/Sodium Chloride (25,000 unit/ Sodium Chloride) 250 mls @ 10 mls/hr IV .Q24H [facility]; Protocol Last Titration: 12/24/20 17:17 Dose: 14.07 units/kg/hr, 14.998 mls/hr Documented by: Losartan Potassium (Losartan 50 Mg Tab) 100 mg PO DAILY [facility] Last Admin: 12/25/20 10:12 Dose: 100 mg Documented by: Metoprolol Tartrate (Metoprolol Tartrate 50 Mg Tab) 100 mg PO BID [facility] Last Admin: 12/25/20 10:12 Dose: 100 mg Documented by: Spironolactone (Spironolactone 25 Mg Tab) 25 mg PO DAILY [facility] Last Admin: 12/25/20 10:12 Dose: 25 mg Documented by: Past medical history to include: Hypertension, constipation, arthritis Social history: . Did drink excessive alcohol in the past. Smoked for about 20 years stopped smoking about 40 years ago. 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 Family history: Bowel cancer Physical examination: VITAL SIGNS: 97.6, 90, 19, 163/78, 96% on 2 L GENERAL: Sitting up in chair, awake EYES: Pupils equal. Conjunctiva normal. NECK: JVD not raised; masses not palpable. HEART: Irregular heart sounds; no edema. LUNGS: Respiratory rate increased, decreased breath sounds MUSCULAR skeletal: Evidence of OA ABDOMEN: Soft, nontender, liver spleen not palpable, no masses palpable. PSYCH: Alert and oriented x3; mood and affect normal. INVESTIGATIONS, reviewed in the clinical context: December 25: Potassium 3.5 creatinine 1.58 December 24: Potassium 2.8 creatinine 1.16 magnesia 1.9 2-D echocardiogram: EF 30-35%. Moderate concentric LVH December 23: Potassium 3.9 creatinine 1.40 LDL 127 WBC 12.1 hemoglobin 16.4 platelets 283 potassium 3.9 creatinine 1.2 to Troponin I 0.037, 0.027, 0.025 EKG tracing personally reviewed by me-atrial flutter with a ventricular rate of 123. Possible nonspecific ST segment changes Chest x-ray film personally reviewed by me-cardiomegaly Assessment and plan: -acute non-Q wave MT in a patient with risk factors include, age, ex-smoker, hyp ertension. Aspirin, Cozaar, Lopressor. IV heparin. Pending cardiac catheterization -Accelerated hypertension: Uncontrolled Given IV labetalol in the ER. Lopressor 100 mg twice a day . Cozaar 100 mg daily. Catapres patch 0.1. Amlodipine 5 mg daily. -New onset atrial flutter with rapid ventricular rate, now better controlled IV heparin, Cardizem drip-discontinued, Lopressor 100 mg twice a day -Acute congestive heart exacerbation from systolic dysfunction EF 30-35%: Slow to respond IV Lasix 40 mg every 12. Aldactone 25 mg a day -Primary osteoarthritis multiple joints Pain medications as needed -Obesity BMI 34.7 Weight loss measures and follow with PCP -IV heparin monitoring Follow PTT -Chronic kidney disease, stage III likely nephrosclerosis Follow renal function Continue IV heparin. Will DC Catapres patch. Add 50 mg Lopressor in the afternoon and increase amlodipine to 10 mg daily given an extra 5 mg dose today. Lasix changed to by mouth -hold morning dose of Lasix pending labs.
[2020-12-26] MEDS: amLODIPine 10 MG TAB PO SCH (08:37)
[2020-12-26] MEDS: METOPROLOL TARTRATE 50 MG TAB PO SCH ×3 (08:37→20:10)
[2020-12-26] MEDS: SPIRONOLACTONE 25 MG TAB PO SCH (08:37)
[2020-12-26] MEDS: LOSARTAN 50 MG TAB PO SCH (08:37)
[2020-12-26] MEDS: ATORVASTATIN 40 MG TAB PO SCH (08:37)
[2020-12-26] MEDS: HEPARIN SOD,PORK IN 0.45% NACL 25,000 UNIT in 0.45% NACL 1 250ML.BAG IV SCH (08:42)
[2020-12-26 08:54] LABS: Calcium 10.2 mg/dL (8.4-10.2); Potassium 3.6 mmol/L (3.5-5.1)
[2020-12-26] MEDS ORDERED: FUROSEMIDE 40 MG TAB PO SCH (09:00)
[2020-12-26] MEDS: ASPIRIN 81 MG PO SCH (09:00)
[2020-12-26] MEDS ORDERED: ATORVASTATIN 80 MG TAB PO STA (09:07)
[2020-12-26] MEDS ORDERED: NITROGLYCERIN SL TABS 0.4 MG TAB SUBLINGUAL PRN (09:07)
[2020-12-26] MEDS ORDERED: ASPIRIN 325 MG TAB PO STA (09:07)
[2020-12-26] MEDS ORDERED: ALPRAZolam 0.25 MG TAB PO PRN (09:07)
[2020-12-26] MEDS ORDERED: ALPRAZolam 0.5 MG TAB PO PRN (09:07)
[2020-12-26] MEDS ORDERED: SODIUM CHLORIDE 0.9% 1,000 ML in EMPTY BAG 1 BAG IV ONE (09:07)
[2020-12-26] MEDS ORDERED: ATORVASTATIN 40 MG TAB PO STA (09:12)
[2020-12-26] MEDS ORDERED: LIDOCAINE 1% INJ 10MG/ML (20 ML MDV) ONE (10:26)
[2020-12-26] MEDS ORDERED: VERAPAMIL 2.5 MG/ML 2 ML AMP ONE (10:26)
[2020-12-26] MEDS ORDERED: fentaNYL (PF) 50 MCG/ML 2 ML AMP ONE (10:46)
[2020-12-26] MEDS ORDERED: IV FLUID CONTINUATION 1,000 ML IV ONE (10:53)
[2020-12-26] MEDS ORDERED: MIDAZOLAM 2 MG/2 ML VIAL IV ONE (11:22)
[2020-12-26] MEDS ORDERED: fentaNYL (PF) 50 MCG/ML 2 ML AMP IV ONE (11:22)
[2020-12-26] MEDS ORDERED: LIDOCAINE 1% INJ 10MG/ML (20 ML MDV) SQ ONE (11:25)
[2020-12-26] MEDS ORDERED: HEPARIN SODIUM 1,000 UN/ML (10ML VL) ONE (11:28)
[2020-12-26] MEDS: VERAPAMIL SYRINGE (5 MG/10 ML) INTRAARTER ONE ×2 (11:30→11:41)
[2020-12-26] MEDS ORDERED: IOPAMIDOL-370 125ML BTL INJ ONE (11:39)
[2020-12-26] MEDS ORDERED: RX INFO: IV CONTRAST WAS GIVEN 1 EACH MISC MISCELLANE PRN (11:51)
--- NOTE | 2020-12-26 11:58 | P.CARDCATH ---
Date of Procedure: 12/26/20 Preoperative Diagnosis: Chest pain with positive troponin and also new-onset atrial fibrillation Postoperative Diagnosis: Normal coronary arteries Procedure(s) Performed: Left heart catheterization without left ventriculography Description of Procedure: HISTORY: This is a 80-year-old gentleman with history of hypertension hyperlipidemia and previous history of smoking who was admitted to the hospital with the onset atrial fibrillation. Patient first troponin was abnormal and has been having some chest pain. In view of that patient is advised to have a cardiac catheterization for definitive diagnosis CONSENT:I have discussed the risks, benefits and alternative therapies for the above-mentioned procedure and for both sedation/analgesia as well as necessary blood product administration, if indicated, as they pertain to this patient. The patient has indicated understanding and acceptance of the risks and procedures discussed. PROCEDURE: Patient was brought to the lab in a fasting state. Patient was given some IV sedation. The right wrist is infiltrated with lidocaine and right radial artery was entered using Seldinger technique. A 6-Bengali catheter was left in place and selective coronary arteriography was performed. Patient tolerated the procedure well. TR band was applied for hemostasis. No immediate complications were noted and patient was transferred to [facility] in a stable condition Conscious Sedation: Versed 1mg Fentanyl 50 g Duration 16minutes HEMODYNAMICS: The aortic pressure is about 160/80. Left ankle end-diastolic pressure is about 8-10. No gradient across the aortic valve SELECTIVE CORONARY ARTERIOGRAPHY: LEFT MAIN: Normal length and free of occlusive disease THE LEFT ANTERIOR DESCENDING CORONARY ARTERY: Good caliber vessel giving rise to good-sized diagonal and septal branches. Free of occlusive disease THE LEFT CIRCUMFLEX AND IS CORONARY ARTERY: . Good caliber vessel with mild disease in the proximal portion THE RIGHT CORONARY ARTERY: And vessel giving rise to PDA and PLV and free of occlusive disease LEFT VENTRICULOGRAPHY: . Performed FINAL IMPRESSION: Mild coronary artery disease. Normal end-diastolic pressure PLAN: Maximum medical therapy. This factor modification PROGNOSIS: Fair
--- NOTE | 2020-12-26 14:13 | P.PN ---
Subjective Progress Note Date: 12/26/20 HISTORY OF PRESENT ILLNESS: his is a pleasant 80-year-old male past medical history significant for hypertension, dyslipidemia former nicotine dependence, former alcohol use quit 40 years ago. 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 We have been asked to see in consultation for chest pain and new onset atrial fibrillation with rapid ventricular response. Patient is seen and examined in the emergency Department, no acute distress, with the bedside. Patient presents emergency department today after having an episode of left-sided chest pain. He describes the chest pain is sharp, nonradiating, nonexertional. He states it is similar to cast pain since that lasted about 4-5 hours, after he went to the bathroom and had a bowel movement his chest pain subsided. Denies any aggravating or alleviating factors. He did not take anything for the pain. He denies associated shortness of breath, palpitations, lightheadedness, dizziness, syncope, nausea, diaphoresis. However lately he states that he's been short of breath for many years now and has chronic dyspnea on exertion. He also states that he's been having difficulty controlling his blood pressure for some time now. He states that they've tried numerous antihypertensives. He denies a history of diabetes, stroke, MD or atrial fibrillation. He currently does not smoke or drink alcohol. Current home cardiac medications include Olmesartan 20 mg daily, Lasix 20 mg daily, carvedilol 6.25 mg twice a day. On admission patient started on IV Cardizem drip and IV heparin. Patient denies history of bleeding issues. EKG reveals atrial fibrillation with rapid ventricular response, heart rate 123, nonspecific STT wave abnormalities. No prior EKG to compare. 12/23/2020: Patient seen at bedside, no acute distress. He continues to be short of breath. Blood pressure 177/101, heart rate 69, afebrile, maintaining oxygen saturations on 2 L nasal cannula. Telemetry reviewed patient continues to be in atrial fibrillation with better controlled rates heart rate 70s to 80s. His IV Cardizem has been stopped. Echocardiogram revealed EF at 30-35%, RV is mild to moderately enlarged, LA severely dilated, mild mitral regurgitation, mild tricuspid regurgitation, mild pulmonary hypertension. G reviewed sodium 142, p otassium 3.9, BUN 25, serum creatinine 1.4. Additional troponins were negative 2. Patient currently maintained on aspirin 81 mg daily, PO Lasix 20mg, losartan 100 mg daily, Toprol tartrate 100 mg twice a day, lisinopril 20 mg twice a day. 12/24/2020 Patient examined this morning at the bedside. Patient denies chest pain. Patient continues to report shortness of breath. He remains on IV Lasix. He also remains on IV heparin. Telemetry reveals atrial fibrillation with controlled ventricular rate 12/25/2020 Patient examined at the bedside. Patient denies chest pain or pressure. He reports improvement in his shortness of breath. Patient's creatinine increased today to 1.58. He remains on IV Lasix. 12/26/2020 Patient examined this morning at the bedside. Patient denies chest pain or pressure. He denies shortness of breath. Patient's creatinine improved today to 1.4. Vital signs are stable. PHYSICAL EXAM: VITAL SIGNS: Reviewed. GENERAL: Well-developed in no acute distress. NECK: Supple. No JVD or thyromegaly LUNGS: Respirations even and unlabored. Lungs diminished HEART: Irregular rate and rhythm. S1 and S2 heard. EXTREMITIES: Normal range of motion. No clubbing or cyanosis. Peripheral pulses intact. 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 Rodriguez Patient may begin Eliquis tonight after cardiac catheterization at 2100 Further recommendations pending patient course Nurse practitioner note has been reviewed by physician. Signing provider agrees with the documented findings, assessment, and plan of care. Objective - Vital Signs Vital signs: Vital Signs Temp 97.9 F 12/26/20 07:50 Pulse 76 12/26/20 08:00 Resp 18 12/26/20 08:00 BP 171/136 12/26/20 07:50 Pulse Ox 97 12/26/20 07:50 Intake & Output 12/25/20 12/26/20 12/26/20 18:59 06:59 18:59 Intake Total 712.502 301.996 Balance 712.502 301.996 Weight 106.3 kg Intake: IV 275 Intake, IV Titration 232.502 26.996 Amount Heparin Sod,Pork in 0.45% 232.502 26.996 NaCl 25,000 unit In 0.45 % NaCl 1 250ml.bag @ 9. 381 UNITS/KG/HR 10 mls/hr IV .Q24H [facility] Rx#: [id number] Oral 480 Other: Voiding Method Toilet Toilet Toilet # Voids 2 2 - Labs CBC & Chem 7: 12/22/20 06:52 12/27/20 08:27 Labs: Abnormal Lab Results - Last 24 Hours (Table) 12/26/20 12/26/20 Range/Units 07:50 07:50 APTT 62.0 H (22.0-30.0) sec BUN 41 H (9-20) mg/dL Creatinine 1.47 H (0.66-1.25) mg/dL Glucose 103 H (74-99) mg/dL
[2020-12-26] MEDS: SODIUM CHLORIDE 0.9% 1,000 ML IV SCH (16:20)
--- NOTE | 2020-12-26 18:55 | P.PN ---
Progress Note - Text Progress Note Date: 12/26/20 Chief Complaint: Chest pain History of presenting complaint: This is a pleasant 80-year-old patient who follows with Dr. Appiah. Chronic stable medical conditions include hypertension, constipation, chronic low back pain from arthritis. Patient lost that the low some left-sided chest pain he described simply as pain. Nausea for good 4-5 hours. Did radiate to the left shoulder. Patient had some shortness of breath. No dizziness or lightheadedness. No perspiration. No edema. Appetite is fair. Because of his back uses a cane to get about. Patient has a problem with constipation having a bowel movement every 3-4 days. No fever no chills. Patient initial blood patient ER was 206/157. Was given IV labetalol. Patient also found to be in atrial fibrillation uncontrolled. Put on a Cardizem drip. Admitted with accelerated hypertension, atrial fibrillation uncontrolled. Found to be in acute CHF. EF 30-35%. Placed on IV Lasix December 23: Blood pressure running high. Amlodipine added. No chest pain. Remains in atrial fibrillation. Heart rate in the 80s. Sitting up in a chair. Diet. Some shortness of breath. Started on IV Lasix. at the bedside December 24: Sitting up in a chair. No chest pain. Plan is for cardiac catheterization on Saturday. Oral intake fair. Shortness of breath but her. December 25: Sitting up. Comfortable. No chest pain. For cardiac catheterization tomorrow. at the bedside. Breathing stable. On IV Lasix. December 26: Had cardiac catheterization earlier today. Minimal disease. Blood pressure better controlled. at the bedside. Care was discussed with length and medications and the radiation blood pressure is discussed. Atrial flutter controlled Review of systems: Was done for constitutional, cardiovascular, GI, pulmonary. relevant finding as above Active Medications Alprazolam (Alprazolam 0.25 Mg Tab) 0.25 mg PO Q6HR PRN PRN Reason: Mild Anxiety Alprazolam (Alprazolam 0.5 Mg Tab) 0.5 mg PO Q6HR PRN PRN Reason: Moderate Anxiety Amlodipine Besylate (Amlodipine 10 Mg Tab) 10 mg PO DAILY [facility] Last Admin: 12/26/20 08:37 Dose: 10 mg Documented by: Apixaban (Apixaban 5 Mg Tab) 5 mg PO BID KENRICK; Protocol Aspirin (Aspirin 81 Mg) 81 mg PO DAILY [facility] Last Admin: 12/26/20 09:00 Dose: Not Given Documented by: Atorvastatin Calcium (Atorvastatin 40 Mg Tab) 40 mg PO DAILY [facility] Last Admin: 12/26/20 08:37 Dose: 40 mg Documented by: Heparin Sodium (Porcine) 10, (000 unit/ Sodium Chloride) 1,001 mls @ 999 mls/hr IRRIGATION ONCE PRN PRN Reason: INTRA-OP Stop: 12/27/20 23:00 Heparin Sodium (Porcine) 2,500 (unit/ Sodium Chloride) 250.5 mls @ 250 mls/hr IRRIGATION ONCE PRN PRN Reason: INTRA-OP Stop: 12/27/20 23:00 Sodium Chloride (Saline 0.9%) 1,000 mls @ 75 mls/hr IV .[id number] [facility] Last Admin: 12/26/20 16:20 Dose: Not Given Documented by: Losartan Potassium (Losartan 50 Mg Tab) 100 mg PO DAILY [facility] Last Admin: 12/26/20 08:37 Dose: 100 mg Documented by: Metoprolol Tartrate (Metoprolol Tartrate 50 Mg Tab) 100 mg PO BID [facility] Last Admin: 12/26/20 08:37 Dose: 100 mg Documented by: Metoprolol Tartrate (Metoprolol Tartrate 50 Mg Tab) 50 mg PO DAILY@1300 [facility] Last Admin: 12/26/20 15:21 Dose: Not Given Documented by: Miscellaneous Information (Rx Info: Iv Contrast Was Given 1 Each Misc) 1 each MISCELLANE DAILY PRN PRN Reason: Per Protocol Stop: 12/28/20 11:51 Nitroglycerin (Nitroglycerin Sl Tabs 0.4 Mg Tab) 0.4 mg SUBLINGUAL Q5M PRN PRN Reason: Chest Pain Past medical history to include: Hypertension, constipation, arthritis Social history: . Did drink excessive alcohol in the past. Smoked for about 20 years stopped smoking about 40 years ago. 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 Conjunctiva normal. NECK: JVD not raised; masses not palpable. HEART: Irregular heart sounds; no edema. LUNGS: Respiratory rate increased, decreased breath sounds MUSCULAR skeletal: Evidence of OA ABDOMEN: Soft, nontender, liver spleen not palpable, no masses palpable. PSYCH: Alert and oriented x3; mood and affect normal. INVESTIGATIONS, reviewed in the clinical context: December 26: Potassium 3.6 BUN 41-1.47 Cardiac catheterization: Mild CAD December 25: Potassium 3.5 creatinine 1.58 December 24: Potassium 2.8 creatinine 1.16 magnesia 1.9 2-D echocardiogram: EF 30-35%. Moderate concentric LVH December 23: Potassium 3.9 creatinine 1.40 LDL 127 WBC 12.1 hemoglobin 16.4 platelets 283 potassium 3.9 creatinine 1.2 to Troponin I 0.037, 0.027, 0.025 EKG tracing personally reviewed by me-atrial flutter with a ventricular rate of 123. Possible nonspecific ST segment changes Chest x-ray film personally reviewed by me-cardiomegaly Assessment and plan: -acute non-Q wave MA in a patient with risk factors include, age, ex-smoker, hypertension. Aspirin, Cozaar, Lopressor. IV heparin. Pending cardiac catheterization -Mild CAD [per cardiac catheterization] -Accelerated hypertension: Controlled Given IV labetalol in the ER. Lopressor 100 mg twice a day and 50 mg at 1 PM . Cozaar 100 mg daily. Amlodipine 10 mg daily. -New onset atrial flutter with rapid ventricular rate, now better controlled IV heparin, Cardizem drip-discontinued, Lopressor 100 mg twice a day -Acute congestive heart exacerbation from systolic dysfunction EF 30-35%: Better IV Lasix 40 mg every 12-discontinued. Aldactone 25 mg a day -Primary osteoarthritis multiple joints Pain medications as needed -Obesity BMI 34.7 Weight loss measures and follow with PCP -IV heparin monitoring Follow PTT -Chronic kidney disease, stage III likely nephrosclerosis Follow renal function Will DC the afternoon dose of Lopressor. Aldactone 25 mg from tomorrow morning. Patient getting some is today. Repeat labs in the morning. Care was discussed at length with the patient and the at the bedside. Questions answered. Total time spent today about 40 minutes with over 20 minutes of discussion.
[2020-12-26] MEDS: APIXABAN 5 MG TAB PO SCH (20:09)
[2020-12-27] MEDS: SODIUM CHLORIDE 0.9% 1,000 ML IV SCH ×2 (03:50→11:56)
[2020-12-27] MEDS ORDERED: HEPARIN SODIUM,PORCINE 2,500 UNIT in SODIUM CHLORIDE 0.9% 250 ML IRRIGATION PRN (07:00)
[2020-12-27] MEDS ORDERED: HEPARIN SODIUM,PORCINE 10,000 UNIT in SODIUM CHLORIDE 0.9% 1,000 ML IRRIGATION PRN (07:00)
[2020-12-27] MEDS: ASPIRIN 81 MG PO SCH (08:24)
[2020-12-27] MEDS: APIXABAN 5 MG TAB PO SCH (08:24)
[2020-12-27] MEDS: ATORVASTATIN 40 MG TAB PO SCH (08:24)
[2020-12-27] MEDS: amLODIPine 10 MG TAB PO SCH (08:24)
[2020-12-27] MEDS: LOSARTAN 50 MG TAB PO SCH (08:25)
[2020-12-27] MEDS: METOPROLOL TARTRATE 50 MG TAB PO SCH (08:25)
[2020-12-27 08:40] VITALS: TEMP 98.4
[2020-12-27] MEDS ORDERED: SPIRONOLACTONE 25 MG TAB PO SCH (09:00)
[2020-12-27 09:48] LABS: Calcium 10.1 mg/dL (8.4-10.2); Potassium 3.8 mmol/L (3.5-5.1)
[2020-12-27 12:10] VITALS: BP 151/91; PULSE 74; RESP 18
--- NOTE | 2020-12-27 12:49 | P.PN ---
Subjective Progress Note Date: 12/27/20 HISTORY OF PRESENT ILLNESS: his is a pleasant 80-year-old male past medical history significant for hypertension, dyslipidemia former nicotine dependence, former alcohol use quit 40 years ago. 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 We have been asked to see in consultation for chest pain and new onset atrial fibrillation with rapid ventricular response. Patient is seen and examined in the emergency Department, no acute distress, with the bedside. Patient presents emergency department today after having an episode of left-sided chest pain. He describes the chest pain is sharp, nonradiating, nonexertional. He states it is similar to cast pain since that lasted about 4-5 hours, after he went to the bathroom and had a bowel movement his chest pain subsided. Denies any aggravating or alleviating factors. He did not take anything for the pain. He denies associated shortness of breath, palpitations, lightheadedness, dizziness, syncope, nausea, diaphoresis. However lately he states that he's been short of breath for many years now and has chronic dyspnea on exertion. He also states that he's been having difficulty controlling his blood pressure for some time now. He states that they've tried numerous antihypertensives. He denies a history of diabetes, stroke, CA or atrial fibrillation. He currently does not smoke or drink alcohol. Current home cardiac medications include Olmesartan 20 mg daily, Lasix 20 mg daily, carvedilol 6.25 mg twice a day. On admission patient started on IV Cardizem drip and IV heparin. Patient denies history of bleeding issues. EKG reveals atrial fibrillation with rapid ventricular response, heart rate 123, nonspecific STT wave abnormalities. No prior EKG to compare. 12/23/2020: Patient seen at bedside, no acute distress. He continues to be short of breath. Blood pressure 177/101, heart rate 69, afebrile, maintaining oxygen saturations on 2 L nasal cannula. Telemetry reviewed patient continues to be in atrial fibrillation with better controlled rates heart rate 70s to 80s. His IV Cardizem has been stopped. Echocardiogram revealed EF at 30-35%, RV is mild to moderately enlarged, LA severely dilated, mild mitral regurgitation, mild tricuspid regurgitation, mild pulmonary hypertension. G reviewed sodium 142, p otassium 3.9, BUN 25, serum creatinine 1.4. Additional troponins were negative 2. Patient currently maintained on aspirin 81 mg daily, PO Lasix 20mg, losartan 100 mg daily, Toprol tartrate 100 mg twice a day, lisinopril 20 mg twice a day. 12/24/2020 Patient examined this morning at the bedside. Patient denies chest pain. Patient continues to report shortness of breath. He remains on IV Lasix. He also remains on IV heparin. Telemetry reveals atrial fibrillation with controlled ventricular rate 12/25/2020 Patient examined at the bedside. Patient denies chest pain or pressure. He reports improvement in his shortness of breath. Patient's creatinine increased today to 1.58. He remains on IV Lasix. 12/26/2020 Patient examined this morning at the bedside. Patient denies chest pain or pressure. He denies shortness of breath. Patient's creatinine improved today to 1.4. Vital signs are stable. 12/27/2020 Patient status post cardiac catheterization revealing mild CAD. Patient examined this morning at the bedside. Patient denies chest pain or pressure. He denies shortness of breath. Patient remains in atrial fibrillation with controlled ventricular rate. He is anticoagulated with Eliquis. PHYSICAL EXAM: VITAL SIGNS: Reviewed. GENERAL: Well-developed in no acute distress. NECK: Supple. No JVD or thyromegaly LUNGS: Respirations even and unlabored. Lungs diminished HEART: Irregular rate and rhythm. S1 and S2 heard. EXTREMITIES: Normal range of motion. No clubbing or cyanosis. Peripheral pulses intact. Right radial cath site with pulse present. 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 Rodriguez Nurse practitioner note has been reviewed by physician. Signing provider agrees with the documented findings, assessment, and plan of care. Objective - Vital Signs Vital signs: Vital Signs Temp 98.4 F 12/27/20 12:00 Pulse 74 12/27/20 12:00 Resp 18 12/27/20 12:00 BP 151/91 12/27/20 12:00 Pulse Ox 96 12/27/20 12:00 Intake & Output 12/26/20 12/27/20 12/27/20 18:59 06:59 18:59 Intake Total 861.996 Output Total 300 900 300 Balance 561.996 -900 -300 Weight 106.8 kg Intake: IV 275 Intake, IV Titration 226.996 Amount Heparin Sod,Pork in 0.45% 26.996 NaCl 25,000 unit In 0.45 % NaCl 1 250ml.bag @ 9. 381 UNITS/KG/HR 10 mls/hr IV .Q24H [facility] Rx#: [id number] Sodium Chloride 0.9% 1, 200 000 ml In Empty Bag 1 bag @ 1 ML/KG/HR 106.3 mls/ hr IV .Q9H25M [facility] Rx#: [id number] Oral 360 Output: Urine 300 900 300 Other: Voiding Method Toilet Toilet Toilet # Voids 1 - Labs CBC & Chem 7: 12/22/20 06:52 12/27/20 08:27 Labs: Abnormal Lab Results - Last 24 Hours (Table) 12/27/20 Range/Units 08:27 BUN 34 H (9-20) mg/dL Glucose 148 H (74-99) mg/dL
--- NOTE | 2020-12-27 20:24 | P.DS ---
Providers Date of admission: 12/22/20 08:20 Expected date of discharge: 12/27/20 Attending physician: Valentino Bledsoe Consults: 12/22/20 08:21 Consult Physician Urgent Consulting Provider: [facility] Consult Reason/Comments: Chest pain, new onset atrial fibrillation, elevated troponin, hypertensive Do you want consulting provider notified?: Yes Primary care physician: Isiah Appiah [facility] Course: Chief Complaint: Chest pain History of presenting complaint: This is a pleasant 80-year-old patient who follows with Dr. Appiah. Chronic stable medical conditions include hypertension, constipation, chronic low back pain from arthritis. Patient lost that the low some left-sided chest pain he described simply as pain. Nausea for good 4-5 hours. Did radiate to the left shoulder. Patient had some shortness of breath. No dizziness or lightheadedness. No perspiration. No edema. Appetite is fair. Because of his back uses a cane to get about. Patient has a problem with constipation having a bowel movement every 3-4 days. No fever no chills. Patient initial blood patient ER was 206/157. Was given IV labetalol. Patient also found to be in atrial fibrillation uncontrolled. Put on a Cardizem drip. Admitted with accelerated hypertension, atrial fibrillation uncontrolled. Found to be in acute CHF. EF 30-35%. Placed on IV Lasix. Breathing improved. Cardiac catheterization showed minimal disease. December 23: Blood pressure running high. Amlodipine added. No chest pain. Remains in atrial fibrillation. Heart rate in the 80s. Sitting up in a chair. Diet. Some shortness of breath. Started on IV Lasix. at the bedside December 24: Sitting up in a chair. No chest pain. Plan is for cardiac catheterization on Saturday. Oral intake fair. Shortness of breath but her. December 25: Sitting up. Comfortable. No chest pain. For cardiac catheterization tomorrow. at the bedside. Breathing stable. On IV Lasix. December 26: Had cardiac catheterization earlier today. Minimal disease. Blood pressure better controlled. at the bedside. Care was discussed with length and medications and the radiation blood pressure is discussed. Atrial flutter controlled December 27: Breathing well. No new issues. Care was discussed with the patient. All his questions answered. Follow-up with cardiology. Repeat BMP 1 week Discussion and discharge planning more than 35 minutes Consultation: [facility] Past medical history to include: Hypertension, constipation, arthritis Social history: . Did drink excessive alcohol in the past. Smoked for about 20 years stopped smoking about 40 years ago. 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 Family history: Bowel cancer Physical examination: VITAL SIGNS: 98.4, 74, 19, 151/81, 97% room air GENERAL: Sitting up in chair, awake EYES: Pupils equal. Conjunctiva normal. NECK: JVD not raised; masses not palpable. HEART: Irregular heart sounds; no edema. LUNGS: Respiratory rate increased, decreased breath sounds MUSCULAR skeletal: Evidence of OA ABDOMEN: Soft, nontender, liver spleen not palpable, no masses palpable. PSYCH: Alert and oriented x3; mood and affect normal. INVESTIGATIONS, reviewed in the clinical context: December 27: Potassium 3.8 creatinine 1.2 on December 26: Potassium 3.6 BUN 41-1.47 Cardiac catheterization: Mild CAD December 25: Potassium 3.5 creatinine 1.58 December 24: Potassium 2.8 creatinine 1.16 magnesia 1.9 2-D echocardiogram: EF 30-35%. Moderate concentric LVH December 23: Potassium 3.9 creatinine 1.40 LDL 127 WBC 12.1 hemoglobin 16.4 platelets 283 potassium 3.9 creatinine 1.2 to Troponin I 0.037, 0.027, 0.025 EKG tracing personally reviewed by me-atrial flutter with a ventricular rate of 123. Possible nonspecific ST segment changes Chest x-ray film personally reviewed by me-cardiomegaly Assessment and plan: -acute non-Q wave MT in a patient with risk factors include, age, ex-smoker, hypertension. Aspirin, Cozaar, Lopressor. IV heparin-discontinued. -Mild CAD [per cardiac catheterization] -Accelerated hypertension: Controlled Given IV labetalol in the ER. Lopressor 100 mg twice a day . Benicar 20 mg daily Amlodipine 10 mg daily. -New onset atrial flutter with rapid ventricular rate, now better controlled IV heparin, Cardizem drip-discontinued, Lopressor 100 mg twice a day -Acute congestive heart exacerbation from systolic dysfunction EF 30-35%: Better IV Lasix 40 mg every 12-discontinued. Aldactone 25 mg a day. Lasix 20 mg day. -Primary osteoarthritis multiple joints Pain medications as needed -Obesity BMI 34.7 Weight loss measures and follow with PCP -IV heparin monitoring Follow PTT -Acute kidney injury,. Renal from diuresis Better -Chronic kidney disease, stage III likely nephrosclerosis Follow renal function Disposition: Home Plan - Discharge Summary Discharge Rx Participant: Yes New Discharge Prescriptions: New amLODIPine [Norvasc] 10 mg PO DAILY #30 tab Apixaban [Eliquis] 5 mg PO BID 30 Days #60 tab Spironolactone [Aldactone] 25 mg PO DAILY #30 tab Aspirin 81 mg PO DAILY chew Atorvastatin [Lipitor] 40 mg PO DAILY #30 tab Metoprolol Tartrate [Lopressor] 100 mg PO BID #60 tab Nitroglycerin Sl Tabs [Nitrostat] 0.4 mg SUBLINGUAL Q5M PRN #30 tab PRN Reason: Chest Pain Furosemide [Lasix] 20 mg PO DAILY #30 tab Continue Olmesartan [Benicar] 20 mg PO DAILY Discontinued Furosemide [Lasix] 20 mg PO DAILY Carvedilol [Coreg] 6.25 mg PO BID Discharge Medication List Apixaban [Eliquis] 5 mg PO BID 30 Days #60 tab 12/22/20 [Rx] Olmesartan [Benicar] 20 mg PO DAILY 12/22/20 [History] Aspirin 81 mg PO DAILY chew 12/27/20 [Rx] Atorvastatin [Lipitor] 40 mg PO DAILY #30 tab 12/27/20 [Rx] Furosemide [Lasix] 20 mg PO DAILY #30 tab 12/27/20 [Rx] Metoprolol Tartrate [Lopressor] 100 mg PO BID #60 tab 12/27/20 [Rx] Nitroglycerin Sl Tabs [Nitrostat] 0.4 mg SUBLINGUAL Q5M PRN #30 tab 12/27/20 [Rx] Spironolactone [Aldactone] 25 mg PO DAILY #30 tab 12/27/20 [Rx] amLODIPine [Norvasc] 10 mg PO DAILY #30 tab 12/27/20 [Rx] Follow up Appointment(s)/Referral(s): Isiah Appiah MD [Primary Care Provider] - 1-2 days (Saturday, December 30 4:30) Ramón Rodriguez MD [STAFF PHYSICIAN] - 1 Week (January 05, 2:15 ) Patient Instructions/Handouts: *Surgery [facility] - After Heart Catheterization - Load Dispatcher Instructions, Heart Failure (DC), A-fib (Atrial Fibrillation) (DC) Activity/Diet/Wound Care/Special Instructions: Copay for Eliquis is $40.50 and 1st month will be free at [email or web address]. heart healthy diet activity as tolerated avoid bending/flexing wrist do not lift anything more than 5 pounds for 1 week do not submerge wrist in water Discharge Disposition: HOME SELF-CARE
== END 2020-12-27 13:24 | disposition home or self-care (01) | DRG 280 ==
LOC: EC 06:24 → 3SCARD 08:20
PROVIDERS: ADMIT Hospitalist; ATTEND Hospitalist
PROC: B2111ZZ Fluoroscopy of Multiple Coronary Arteries using Low Osmolar Contrast (ICD-10-PCS; 2020-12-26)
PROC: 4A023N7 Measurement of Cardiac Sampling and Pressure, Left Heart, Percutaneous Approach (ICD-10-PCS; principal; 2020-12-26 14:50)
DX: I21.4 Non-ST elevation (NSTEMI) myocardial infarction (principal); I50.23 Acute on chronic systolic (congestive) heart failure; N17.9 Acute kidney failure, unspecified; I48.92 Unspecified atrial flutter; I13.0 Hypertensive heart and chronic kidney disease with heart failure and stage 1 through stage 4 chronic kidney disease, or unspecified chronic kidney disease; Z85.828 Personal history of other malignant neoplasm of skin; Z87.891 Personal history of nicotine dependence; I16.0 Hypertensive urgency; I48.0 Paroxysmal atrial fibrillation; R77.8 Other specified abnormalities of plasma proteins; K59.00 Constipation, unspecified; G89.29 Other chronic pain; M54.5 Low back pain; Z79.01 Long term (current) use of anticoagulants; E78.5 Hyperlipidemia, unspecified; E66.9 Obesity, unspecified; Z68.34 Body mass index [BMI] 34.0-34.9, adult; I27.20 Pulmonary hypertension, unspecified; Z79.82 Long term (current) use of aspirin; I25.10 Atherosclerotic heart disease of native coronary artery without angina pectoris; N18.30 Chronic kidney disease, stage 3 unspecified; Z79.899 Other long term (current) drug therapy; M15.9 Polyosteoarthritis, unspecified
CPT/HCPCS: 36415; 71046; 80048; 80053; 80061; 83735; 83880; 84484; 85025; 85610; 85730; 93005; 93306; 93458; 96374; 99291

== ENCOUNTER 2021-03-10 06:21 | Day surgery (SDC) | payer MEDICARE ==
[2021-03-08 11:18] VITALS: BMI 38.0
[2021-03-10] MEDS ORDERED: LACTATED RINGERS 1,000 ML IV SCH (06:32)
[2021-03-10] MEDS ORDERED: SODIUM CHLORIDE 0.9% 1,000 ML IV SCH ×2 (06:32→08:30)
[2021-03-10 07:01] VITALS: TEMP 99
[2021-03-10 07:34] LABS: Potassium 3.7 mmol/L (3.5-5.1)
[2021-03-10 07:55] VITALS: RESP 16
[2021-03-10] MEDS: BENZOCAINE SPRAY 1 CAN MUCOUS MEM ONE ×2 (08:05→08:09)
[2021-03-10] MEDS ORDERED: LIDOCAINE 1% INJ 10MG/ML (20 ML MDV) ONE (08:06)
[2021-03-10] MEDS ORDERED: PROPOFOL 10 MG/ML 20 ML VIAL IV ONE (08:06)
--- NOTE | 2021-03-10 08:35 | P.PCN ---
Date of Procedure: 03/10/21 Preoperative Diagnosis: Atrial fibrillation and cardiomyopathy Postoperative Diagnosis: Successful cardioversion to sinus rhythm Procedure(s) Performed: JAQUAN followed by cardioversion Description of Procedure: INDICATION: To rule out left atrial clot before cardioversion CONSENT: Informal verbal consent was obtained from the patient and family PROCEDURE: JAQUAN followed by cardioversion FINDINGS:. Patient was brought to the lab in a fasting state. The department of anesthesia provided anesthesia. A lubricated Omni probe was introduced into the oropharynx after spraying the throat with Hurricaine. Multiple views were obtained from esophagus. Color, pulsed and continuous Doppler studies were performed. Saline contrast bubble injection is performed. Patient tolerated the procedure well. No immediate complications IMPRESSION:. The left atrial appendage is free of any clot. There is biatrial enlargement. There is smoke in the left atrium. The interatrial septum is intact without any spontaneous shunt. Saline contrast bubble injection did not reveal any crossing of the bubbles. There is mild mitral regurgitation. There is mild sclerosis of the aortic valve leaflets without any stenosis. Left ventricular function appears to be mild to moderately impaired PLAN: Proceed with cardioversion.
--- NOTE | 2021-03-10 08:37 | P.PCN ---
Date of Procedure: 03/10/21 Preoperative Diagnosis: Atrial fibrillation Postoperative Diagnosis: Successful cardioversion Procedure(s) Performed: JAQUAN followed by cardioversion Description of Procedure: Patient had a JAQUAN examination and was not found to have a clot in the left atrial appendage. Patient was prepped and draped in the usual fashion. He was given anesthesia by department of anesthesia. Anterior posterior paddles were applied. Synchronized shock of 75 J in biphasic fashion was applied followed by 120 J shock. Patient converted to sinus rhythm after the second shock. No immediate complications. Patient tolerated the procedure well. Final impression: #1. Successful cardioversion. Plan: Patient will be discharged home to continue home medication. He is also prescribed amiodarone with tapering doses and follow-up in the office in one week
[2021-03-10 10:42] VITALS: BP 176/76; PULSE 60
== END 2021-03-10 10:10 | disposition home or self-care (01) ==
LOC: CATHCVL 06:21
PROVIDERS: ATTEND Internal Medicine Cardiovascular Disease
DX: I48.19 Other persistent atrial fibrillation (principal); I42.9 Cardiomyopathy, unspecified; Z20.822 Contact with and (suspected) exposure to COVID-19; I10 Essential (primary) hypertension; E78.00 Pure hypercholesterolemia, unspecified; Z79.899 Other long term (current) drug therapy; Z79.82 Long term (current) use of aspirin; Z79.01 Long term (current) use of anticoagulants; Z87.891 Personal history of nicotine dependence; Z85.828 Personal history of other malignant neoplasm of skin; N28.9 Disorder of kidney and ureter, unspecified; M19.90 Unspecified osteoarthritis, unspecified site
CPT/HCPCS: 93312; 93320; 93005; 93325; 92960; 80048; 87635; J2001; J2704

== ENCOUNTER 2021-10-24 09:11 | Day surgery (SDC) | payer MEDICARE ==
[2021-10-23 12:10] VITALS: BMI 39.1
[~2021-10-24 09:11] MED LIST: LACTATED RINGERS 1,000 ML IV SCH; SODIUM CHLORIDE 0.9% 1,000 ML IV SCH; SODIUM CHLORIDE 0.9% 500 ML 500 ML IV ONE
== END 2021-10-24 10:03 | disposition home or self-care (01) ==
LOC: CATHCVL 09:11
PROVIDERS: ATTEND Internal Medicine Cardiovascular Disease
DX: I48.91 Unspecified atrial fibrillation (principal); I48.19 Other persistent atrial fibrillation; Z53.8 Procedure and treatment not carried out for other reasons; R00.1 Bradycardia, unspecified; I25.10 Atherosclerotic heart disease of native coronary artery without angina pectoris; I42.0 Dilated cardiomyopathy; I11.0 Hypertensive heart disease with heart failure; Z20.822 Contact with and (suspected) exposure to COVID-19; I50.9 Heart failure, unspecified; E78.00 Pure hypercholesterolemia, unspecified; Z72.0 Tobacco use; Z79.01 Long term (current) use of anticoagulants; Z79.82 Long term (current) use of aspirin; Z79.899 Other long term (current) drug therapy
CPT/HCPCS: 87635

== ENCOUNTER 2022-03-07 10:37 | Day surgery (SDC) | payer MEDICARE ==
[~2022-03-07 10:37] MED LIST changes: -SODIUM CHLORIDE 0.9% 1,000 ML IV SCH; -SODIUM CHLORIDE 0.9% 500 ML 500 ML IV ONE
[2022-03-07 11:12] VITALS: TEMP 97.4
[2022-03-07] MEDS ORDERED: PROPOFOL 10 MG/ML 20 ML VIAL IV ONE (12:27)
--- NOTE | 2022-03-07 12:39 | P.PCN ---
Date of Procedure: 03/07/22 Procedure(s) Performed: BRIEF HISTORY: Patient is a 77-year-old pleasant male scheduled for an elective colonoscopy as a part of evaluation of intermittent rectal bleeding for the last 6 months duration. PROCEDURE PERFORMED: Colonoscopy. PREOPERATIVE DIAGNOSIS: Intermittent rectal bleeding. IV sedation per Anesthesia. PROCEDURE: After informed consent was obtained, the patient, was brought into the endoscopy unit. IV sedation was administered by Anesthesia under continuous monitoring. Digital rectal examination was normal. Initially the Olympus CF-160 flexible video colonoscope was then inserted in the rectum, gradually advanced into the cecum without any difficulty. Careful examination was performed as the scope was gradually being withdrawn. Ileocecal valve and the appendiceal orifice were visualized and appeared normal. Prep was excellent. Mucosa of the cecum, ascending colon, transverse colon, descending colon, sigmoid colon, and rectum appeared normal. Retroflexion was performed in the rectum and small internal hemorrhoids were seen. The patient tolerated the procedure well. IMPRESSION: Normal-appearing colon from rectum to cecum with no evidence of colorectal neoplasia . Small internal hemorrhoids. RECOMMENDATIONS: Findings of this examination were discussed with the patient as well as a family. He was advised to be on a high-fiber diet and take fiber supplements a regular basis and avoid straining and constipation..
[2022-03-07 13:25] VITALS: BP 172/84; PULSE 83; RESP 20
== END 2022-03-07 13:31 ==
LOC: ORWHC2ENDO 10:37
PROVIDERS: ATTEND Internal Medicine Gastroenterology
DX: K62.5 Hemorrhage of anus and rectum (principal); I10 Essential (primary) hypertension; E78.5 Hyperlipidemia, unspecified; I48.91 Unspecified atrial fibrillation; Z87.891 Personal history of nicotine dependence; M19.90 Unspecified osteoarthritis, unspecified site; E66.9 Obesity, unspecified; Z79.890 Hormone replacement therapy; Z79.899 Other long term (current) drug therapy
CPT/HCPCS: 45378; J2704

== ENCOUNTER 2022-06-11 05:58 | Observation (INO) | payer MEDICARE ==
[2022-05-31 12:39] VITALS: BMI 38.4
[2022-06-11] MEDS ORDERED: HYDROmorphone 0.5 MG/0.5 ML SYRINGE IVP PRN (06:08)
[2022-06-11] MEDS ORDERED: DEXAMETHASONE SOD PHOSPHATE 4 MG/ML 1 ML VIAL IV ONE (06:08)
[2022-06-11] MEDS ORDERED: LIDOCAINE 1% (10MG/ML) FOR IV START INTRADERMA PRN (06:08)
[2022-06-11] MEDS ORDERED: METOCLOPRAMIDE 5 MG/ML 2 ML VIAL IVP PRN (06:08)
[2022-06-11] MEDS ORDERED: ONDANSETRON 4 MG/2 ML VIAL IVP ONE (06:08)
[2022-06-11] MEDS: SODIUM CHLORIDE 0.9% 1,000 ML IV SCH ×2 (06:40→12:58)
[2022-06-11 06:44] LABS: Basophils # (A) 0.1 k/uL (0-0.2); Basophils % (A) 1 %; Eosinophils # (A) 0.4 k/uL (0-0.7); Eosinophils % (A) 4 %; HCT 49.4 % (39.0-53.0); HGB 16.8 gm/dL (13.0-17.5); Lymphocytes # (A) 2.1 k/uL (1.0-4.8); Lymphocytes % (A) 20 %; MCH 29.3 pg (25.0-35.0); MCHC 34.1 g/dL (31.0-37.0); MCV 86.1 fL (80.0-100.0); Mean Platelet Volume 7.7; Monocytes # (A) 0.6 k/uL (0-1.0); Monocytes % (A) 6 %; Neutrophils # (A) 7.4 k/uL (1.3-7.7); Neutrophils % (A) 68 %; Platelet Count 255 k/uL (150-450); RBC 5.74 m/uL (4.30-5.90); RDW 13.9 % (11.5-15.5); WBC 10.9 k/uL (3.8-10.6)
[2022-06-11 06:55] LABS: Albumin 4.4 g/dL (3.5-5.0); Calcium 9.4 mg/dL (8.4-10.2); Potassium 3.4 mmol/L (3.5-5.1); Total Bilirubin 0.8 mg/dL (0.2-1.3); Total Protein 7.4 g/dL (6.3-8.2)
[2022-06-11] MEDS ORDERED: ePHEDrine 50 MG/ML 1 ML VIAL ONE (07:27)
[2022-06-11] MEDS ORDERED: SUCCINYLCHOLINE CHLORIDE 200 MG/10 ML VIAL IV ONE (07:27)
[2022-06-11] MEDS ORDERED: ETOMIDATE 2 MG/ML 10 ML VIAL ONE (07:27)
[2022-06-11] MEDS ORDERED: FUROSEMIDE 10 MG/ML 2 ML VIAL ONE (07:27)
[2022-06-11] MEDS ORDERED: PHENYLEPHRINE-0.9% NACL SYG 1,000 MCG/10 ML SYRINGE ONE (07:27)
[2022-06-11] MEDS ORDERED: GLYCOPYRROLATE 0.2 MG/ML 2 ML VIAL ONE (07:27)
[2022-06-11] MEDS ORDERED: PROTAMINE SULFATE 10 MG/ML 5 ML VIAL IV ONE (07:27)
[2022-06-11] MEDS ORDERED: ROCURONIUM 10 MG/ML (5 ML VIAL) IV ONE (07:27)
[2022-06-11] MEDS ORDERED: NEOSTIGMINE 1 MG/ML 10 ML VIAL ONE (07:27)
[2022-06-11] MEDS ORDERED: ATROPINE SULFATE 0.4 MG/ML 1 ML VIAL ONE (07:27)
[2022-06-11] MEDS ORDERED: fentaNYL (PF) 50 MCG/ML 2 ML AMP ONE (07:27)
[2022-06-11] MEDS ORDERED: HEPARIN SODIUM,PORCINE 10,000 UNIT/ML 1 ML VIAL ONE (07:27)
--- NOTE | 2022-06-11 07:52 | P.EPPROC ---
- EP Procedure Note Electrophysiology Procedure Note: This is Dr. Asher dictating an H/P on this patient The patient was interviewed and examined IMPRESSION / ASSESSMENT: Persistent atrial fibrillation (failed medical treatment History of atrial flutter with RVR, persistent Complains of tiredness and fatigue History of mild cardiomyopathy Chronic kidney disease Normal TSH Hypertension PLAN: Proceed with A. fib ablation Proceed with atrial flutter ablation Continue Xarelto Farley catheter intraoperatively HPI Patient continues to complain of tiredness fatigue shortness of breath and exertion He has persistent atrial fibrillation that has failed treatment Intermittently also has typical atrial flutter. At that time he has a rapid v entricular response was difficult to control He has had minor rectal bleeding He underwent a GI workup No GI source of bleeding was noted ROS: No fever chills or rigors, no cough, phlegm or expectoration, no nausea, vomiting or diarrhea, no hematuria, dysuria, no musculoskeletal complaints, no strokes or seizures, no skin lesions. EXAMINATION: Afebrile pulse rate in the 70s, blood pressure 144/95 mmHg Breath sounds are reduced bilaterally Heart sounds are irregular No lower extremity edema Groins of healed well no infection in the groins. He was treated with a statin REVIEW OF LABS, ECG & MEDICAL DATA White count 10.9 thousand, hemoglobin 16.8 Sodium 143, potassium 3.4 BUN 35, creatinine 2.15 Normal TSH of 2.2
[2022-06-11] MEDS ORDERED: HEPARIN SOD,PORK IN 0.45% NACL 25,000 UNIT in 0.45% NACL 1 250ML.BAG IV ONE (08:17)
[2022-06-11] MEDS ORDERED: LIDOCAINE 1% INJ 10MG/ML (30 ML VIAL-PF) SQ ONE (08:35)
[2022-06-11] MEDS ORDERED: IOPAMIDOL-370 100ML BTL INJ ONE (10:30)
[2022-06-11] MEDS ORDERED: HEPARIN SODIUM (1,000 UNIT/ML) 1,000 UNIT in SODIUM CHLORIDE 0.9% 1,000 ML IRRIGATION ONE (10:43)
[2022-06-11] MEDS ORDERED: ACETAMINOPHEN TAB 325 MG TAB PO PRN (12:00)
--- NOTE | 2022-06-11 12:18 | P.EPPROC ---
- EP Procedure Note Electrophysiology Procedure Note: PROCEDURE A. 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 fib ablation/pulmonary vein isolation of all veins using cryo- ablation Large pulmonary veins Successful typical atrial flutter ablation Complete entrance block in all 4 veins confirmed No evidence for phrenic nerve injury Esophageal deflection YES PROCEDURE DETAILS Patient was brought to the EP lab in a fasting state after obtaining written informed consent. Procedure performed under general anesthesia Esophagus was intubated. Esophageal temperature monitoring with circa catheter. Esophageal deflection performed with an endoscope to avoid hypothermia of the esophagus. Esophagus was deflected away from the balloon at least half centimeters to avoid thermal injury After initial muscle relaxant use, muscle relaxants were not given thereafter in order to assess phrenic nerve during procedure. Patient prepped and draped as per protocol Cryo ablation-set up with standard preparation of the cryoablation tools done. Femoral Venous access obtained on the right and left groins and sheaths placed Diagnostic catheters for the high right atrium, phrenic nerve stimulation and pacing, His bundle, coronary sinus placed Intracardiac echo catheter placed. Long sheath placed in the right atrium Left and right transseptal catheterization performed under intracardiac echo guidance. Intravenous heparin with aCT above 300 Later, catheter positioning and balloon positioning in the left atrium and pulmonary veins, under intracardiac echo guidance Diagnostic EP study with coronary sinus pacing and recording Baseline measurements: Sinus cycle length 1134 ms, SC interval 290 ms, QRS 116 ms and QT 500 ms AH 103 and HV 50 ms Patient presented with an atrial arrhythmia with concentric activation, atrial cycling 253 ms During placement of the sheath in the left atrium, the arrhythmia terminated. The tip of the catheter was at or just outside the left superior pulmonary vein Thereafter the patient maintenance sinus rhythm Sinus node recovery times at 600, 504 100 ms were 1228 ms, 1331 ms and 1464 ms. Corresponding corrected to sinus recovery times a mildly prolonged AV node Wenckebach block 500 ms Transseptal catheterization performed RA pressure 14/7/10 LA pressure 18/9/14 Transseptal catheterization performed with standard sheath. The cryoablation sh eath was then placed with an over the wire exchange without any acute complications. The cryoablation balloon was placed in the office of each pulmonary vein and all 4 pulmonary veins were isolated. IV dye was injected to confirm occlusion. Goal: achieve complete occlusion of the pulmonary vein, achieve -30 degrees C at 30 seconds and achieve -40 degrees C at 60 seconds and a time to effect of less than 60 seconds. If not, the balloon was repositioned to obtain this result After completion of Cryoblation with durations from 180-240 seconds, entrance block was confirmed with the Attain circular catheter in a roving fashion around the antrum of the pulmonary veins Phrenic nerve pacing was performed from the SVC, right innominate vein area and diaphragm voltage was monitored. Diaphragmatic contractions were also monitored manually for strength of contraction. Phrenic nerve stimulation was performed from within the RS PV, using the achieve catheter. Both distance as well as thresholds were measured within the RS PV This site was tagged fluoroscopically and the Balloon was positioned at least 0.5-1 cm away from this site to minimize phrenic nerve injury risk At the end of the procedure the Achieve catheter was once again used to check for entrance block Phrenic nerve stimulation was performed to confirm diaphragmatic stimulation the end of the procedure Cine fluoroscopy was performed at the very end of the procedure to confirm movement of both diaphragms with inspiration and expiration Extended procedure duration on account of esophageal intubation and deflection of the esophagus for all veins that were within half a centimeter of the prior balloon Temperature monitoring performed with circa catheter The patient had very large pulmonary veins. Carinal lesions delivered evening of the antrum of the veins were very cold Therefore abbreviated lesions had to be delivered. In addition multiple lesions around the antrum of each vein had to be delivered since the balloon placement within the pulmonary veins was out in a deep placement This was avoided and with multiple short antral lesions all veins was successfully isolated This was a uniform issue noted with all pulmonary veins and resulted in an extended duration procedure Phrenic nerve mapping performed within the right superior pulmonary vein and dry balloon maintained at least 1 cm away from the site to minimize phrenic nerve paresis The sheath was removed into the right atrium The caval tricuspid isthmus was mapped RF ablation was applied on the caval tricuspid isthmus Complete line of block was intubated Bidirectional block was proven with differential pacing and successful typical atrial flutter ablation was performed At the end of the procedure the patient was extubated Venous sheaths were removed and hemostasis assured with a closure device PROCEDURES PERFORMED Diagnostic EP study CS pacing and recording Left and right transseptal catheterization 3-D mapping of the tachycardia Intracardiac echocardiography Pulmonary vein isolation with transseptal and comprehensive EPS, [id number] Extended procedure duration linear ablation for typical atrial flutter, [id number]
--- NOTE | 2022-06-11 12:20 | P.PRLE ---
RE: Kale Pitts Dear Dr. Td Henley underwent A. fib ablation as well as ablation for typical atrial flutter successfully He will continue xarelto as before I have asked him to reduce the dose of metoprolol to 50 mg twice daily He will continue all his other cardiac medications as before Thank you for entrusting me with the care of the patient Warm regards Sincerely Noel Asher
[2022-06-11] MEDS ORDERED: ACETAMINOPHEN IV (For NPO) 1,000 MG/100 ML VIAL IVPB ONE (13:08)
[2022-06-11] MEDS ORDERED: ACETAMINOPHEN IV (For NPO) 1,000 MG in EMPTY BAG 1 BAG IVPB ONE (15:00)
[2022-06-11] MEDS: LACTATED RINGERS 1,000 ML IV SCH (18:26)
[2022-06-11] MEDS: METOPROLOL TARTRATE 50 MG TAB PO SCH (19:38)
[2022-06-11] MEDS ORDERED: RIVAROXABAN 20 MG TAB PO SCH (21:00)
[2022-06-12] MEDS: LACTATED RINGERS 1,000 ML IV SCH (06:03)
[2022-06-12 08:09] VITALS: BP 166/90; PULSE 98; RESP 18; TEMP 97.5
[2022-06-12] MEDS ORDERED: amLODIPine 10 MG TAB PO SCH (09:00)
[2022-06-12] MEDS ORDERED: LOSARTAN 50 MG TAB PO SCH (09:00)
[2022-06-12] MEDS ORDERED: ATORVASTATIN 40 MG TAB PO SCH (09:00)
[2022-06-12] MEDS: METOPROLOL TARTRATE 50 MG TAB PO SCH (09:21)
--- NOTE | 2022-06-12 14:51 | P.GSCN ---
History of Present Illness Consult date: 06/12/22 Requesting physician: Tania Haskins History of present illness: The patient is an 82-year-old male with a history of A. fib, and a flutter. He was taken to the EP lab with Dr. Irving today for A. fib ablation/PVI and atrial flutter ablation. Apparently a Farley catheter was inserted for the procedure. The foreskin was retracted to insert the Farley catheter and left in that position causing paraphimosis The patient is unable to urinate, since Farley removal. PVR 400 mL per nursing staff. He does have obstructive urinary symptoms at baseline. No previous stone history of urinary retention Review of Systems - Constitutional Denies chills, Denies fever - EENT Ears, nose, mouth and throat: Denies headache - Cardiovascular Reports palpitations, Denies chest pain, Denies shortness of breath - Respiratory Reports cough - Gastrointestinal Denies nausea, Denies vomiting - Genitourinary Reports nocturia, Denies dysuria, Denies hematuria, Denies incontinence, Denies urinary retention Past Medical History Past Medical History: Atrial Fibrillation, Cancer, Hyperlipidemia, Hypertension, Osteoarthritis (OA) Additional Past Medical History / Comment(s): SKIN CANCER ON SCALP REMOVED, , see Dr. [facility], History of Any Multi-Drug Resistant Organisms: None Reported Past Surgical History: Back Surgery, Heart Catheterization Additional Past Surgical History / Comment(s): COLONOSCOPY. CARDIOVERSION Past Anesthesia/Blood Transfusion Reactions: No Reported Reaction Past Psychological History: No Psychological Hx Reported Smoking Status: Former smoker Past Alcohol Use History: None Reported Additional Past Alcohol Use History / Comment(s): QUIT SMOKING 40 + YEARS AGO. STARTED SMOKING AT 19 QUIT AT AGE 42 SMOKED 2PPD Past Drug Use History: None Reported - Past Family History Mother Family Medical History: Cancer Additional Family Medical History / Comment(s): BOWEL CANCER Father Family Medical History: Deep Vein Thrombosis (DVT) Additional Family Medical History / Comment(s): emphysema Brother(s) Family Medical History: Cancer Medications and Allergies Home Medications Medication Instructions Recorded Confirmed Type Olmesartan [Benicar] 20 mg PO DAILY 12/22/20 06/11/22 History Atorvastatin [Lipitor] 40 mg PO DAILY #30 tab 12/27/20 06/11/22 Rx Nitroglycerin Sl Tabs [Nitrostat] 0.4 mg SUBLINGUAL Q5M PRN #30 tab 12/27/20 06/11/22 Rx amLODIPine [Norvasc] 10 mg PO DAILY #30 tab 12/27/20 06/11/22 Rx Rivaroxaban [Xarelto] 20 mg PO HS 05/31/22 06/11/22 History Metoprolol Succinate (ER) [Toprol 150 mg PO DAILY #90 tab 06/12/22 Rx XL] Allergies Allergy/AdvReac Type Severity Reaction Status Date / Time No Known Allergies Allergy Verified 06/11/22 06:21 Surgical - Exam Vital Signs Temp Pulse Resp BP Pulse Ox 97.6 F 77 18 144/95 92 L 06/11/22 06:39 06/11/22 06:39 06/11/22 06:39 06/11/22 06:39 06/11/22 06:39 General: Well developed, well nourished. No acute distress. HEENT: Head is atraumatic, normocephalic. Lungs: Respirations even and nonlabored. Abdomen/GI: Soft, nondistended , and obese. No guarding, rigidity, or abdominal tenderness. : foreskin retracted, glands edematous and with erythema Skin: Warm and dry Neurologic: Awake, alert and oriented times 3. CN II-XII grossly intact. No focal deficits. Psychiatric: Appropriate mood and affect. Results - Labs 06/11/22 06:28 06/11/22 06:28 Assessment and Plan Assessment: The patient has never seen a urologist. He denies a history of kidney stones. No family history of bladder or renal cancer. No history of kidney stones. He denies any hematuria, dysuria, hesitancy, or urgency. He does have nocturia as well as daytime frequency. He feels as if he empties his bladder completely. One inch Kerlix was wrapped around the glans to apply pressure and reduce swelling. The paraphimosis was then able to be manually reduced by Dr. Santiago. The patient's inability to urinate should not be caused by the paraphimosis, it is more likely a result of anesthesia recent procedure and enlarged prostate.. The nurse was instructed to obtain a PVR, if > 400 mL, place a Farley catheter. The patient is stable to be discharged from a urological standpoint. He may be discharged with a Farley catheter and follow up with Dr. Santiago in our office in 1 week for a voiding trial. (1) Paraphimosis Status: Acute Code(s): N47.2 - PARAPHIMOSIS SNOMED Code(s): 94764377 Plan: - Obtain PVR, if > 400ml, reinsert Farley catheter and follow up with Dr. Santiago in 1 week for voiding trial - Start Flomax Impression and plan of care have been directed as dictated by the signing lee Castro nurse practitioner acting as scribe for signing physician. Thank you for this consultation Terese Castro [facility] Palliative Care/Urology Spectralink [id number] Email: [email or web address] I personally performed and participated in the history, physical, the decision making, I agree with the assessment and plan of [employer]OR
[2022-06-12] MEDS ORDERED: TAMSULOSIN 0.4 MG CAP.ER.24H PO SCH (18:30)
== END 2022-06-12 18:25 | disposition home or self-care (01) ==
LOC: CATHEP 05:58 → 6NMEDSUR 11:45 → 3SCARD 14:22 → CATHEP 06-12 14:42 → 3SCARD 06-12 14:42
PROVIDERS: ADMIT Internal Medicine Clinical Cardiac Electrophysiology; ATTEND Internal Medicine Clinical Cardiac Electrophysiology
DX: I48.19 Other persistent atrial fibrillation (principal); I48.92 Unspecified atrial flutter; N47.2 Paraphimosis; I42.0 Dilated cardiomyopathy; I12.9 Hypertensive chronic kidney disease with stage 1 through stage 4 chronic kidney disease, or unspecified chronic kidney disease; N18.32 Chronic kidney disease, stage 3b; I25.10 Atherosclerotic heart disease of native coronary artery without angina pectoris; E78.5 Hyperlipidemia, unspecified; M19.90 Unspecified osteoarthritis, unspecified site; R35.0 Frequency of micturition; R35.1 Nocturia; E66.01 Morbid (severe) obesity due to excess calories; Z68.41 Body mass index [BMI] 40.0-44.9, adult; Z79.01 Long term (current) use of anticoagulants; Z79.899 Other long term (current) drug therapy; Z87.19 Personal history of other diseases of the digestive system; Z85.828 Personal history of other malignant neoplasm of skin; Z87.891 Personal history of nicotine dependence; Z98.890 Other specified postprocedural states; Z80.0 Family history of malignant neoplasm of digestive organs; Z82.5 Family history of asthma and other chronic lower respiratory diseases; Z82.49 Family history of ischemic heart disease and other diseases of the circulatory system
CPT/HCPCS: 94760; 93656; 93657; 80053; 84443; 85025; G0378; C1759; C1894 ×2; C1769 ×4; C1760; C1730 ×2; C1893; C1733; C1766; C1732; J0330; J2720; J0461; J1644 ×3; J1940; J2710; J2001; J3010; J0131; J2370; J1170; Q9967

== ENCOUNTER → 2023-06-17 | Outpatient (CLI) | payer MEDICARE ==
--- NOTE | 2023-06-17 14:11 | XR ---
EXAMINATION TYPE: XR bone survey complete DATE OF EXAM: 06/17/2023 COMPARISON: NONE HISTORY: D472, N189, I10, E785 Bony calvarium : 2 views of the bony calvarium demonstrate no lytic or blastic lesion. Spine: Two views of the cervical, thoracic and lumbar spines are submitted. No lytic or blastic lesi on seen. Postoperative changes mid thoracic spine. PELVIS: Single view of the pelvis demonstrates no lytic or blastic lesion. UPPER EXTREMITIES: Two views of the upper extremities reveal no lytic or blastic lesions. LOWER EXTREMITIES: 2 views of the lower extremities reveal no lytic or blastic lesions. IMPRESSION: No lytic or blastic lesions seen. Postoperative changes mid thoracic spine.
== END | disposition home or self-care (01) ==
LOC: LABWHC1 13:16
PROVIDERS: ATTEND Internal Medicine Hematology & Oncology
DX: I12.9 Hypertensive chronic kidney disease with stage 1 through stage 4 chronic kidney disease, or unspecified chronic kidney disease (principal); D47.2 Monoclonal gammopathy; N18.9 Chronic kidney disease, unspecified; E78.5 Hyperlipidemia, unspecified
CPT/HCPCS: 77075

== ENCOUNTER 2023-06-25 08:59 | Day surgery (SDC) | payer MEDICARE ==
[2023-06-21 09:13] VITALS: BMI 41.2
[~2023-06-25 08:59] MED LIST changes: -LACTATED RINGERS 1,000 ML IV SCH; +LIDOCAINE 1% (10MG/ML) FOR IV START INTRADERMA PRN
[2023-06-25] MEDS: LACTATED RINGERS 1,000 ML IV SCH (09:43)
[2023-06-25 10:06] VITALS: TEMP 97.4
[2023-06-25] MEDS ORDERED: LIDOCAINE 1% INJ 10MG/ML (20 ML MDV) ONE (10:07)
[2023-06-25] MEDS ORDERED: PROPOFOL 10 MG/ML 20 ML VIAL IV ONE (10:07)
--- NOTE | 2023-06-25 10:24 | P.PCN ---
Date of Procedure: 06/25/23 Procedure(s) Performed: BRIEF HISTORY: Patient is a 83-year-old, pleasant, white male scheduled for an upper endoscopy as a part of evaluation of anemia and black tarry stools. He was admitted to [facility] in April of last year with a hemoglobin of 7.5 g/dL requiring 1 unit of PRBC transfusion. Xarelto has been on hold since then. Last colonoscopy was in March 2022 that was normal. He scheduled for an upper endoscopy to rule out upper GI source of bleeding.. PROCEDURE PERFORMED: Esophagogastroduodenoscopy biopsy . PREOPERATIVE DIAGNOSIS: anemia and black tarry stools. IV sedation Procedure : After informed consent was obtained, the patient was brought into the endoscopy unit. IV sedation was administered by Anesthesia under continuous monitoring. Initially the Olympus GIF-140 video endoscope was inserted into the mouth. Esophagus intubated without any difficulty. It was gradually advanced into the stomach and duodenum and carefully examined. The bulb and the second part of the duodenum appeared normal. The scope at this time was withdrawn to the stomach, adequately insufflated with air, and upon careful examination, mucosa of the antrum, mild gastritis and biopsies were done from this area. Cause of the body, cardia and the fundus appeared normal. The scope was then withdrawn into the esophagus. The GE junction was located at 39 cm from the incisors. The esophagus appeared normal. There were no erosions or ulcerations seen and the patient tolerated the procedure well. IMPRESSION: 1..Mild antral gastritis 2. No evidence of esophagitis, peptic ulcer disease or angiectasia. RECOMMENDATIONS: The findings of this examination were discussed with the patient as well as his family. He was advised to follow with the biopsy results. Monitor CBC periodically. Resume Xarelto if still clinically indicated.
[2023-06-25 10:36] VITALS: RESP 16
[2023-06-25 11:05] VITALS: BP 163/92; PULSE 89
== END 2023-06-25 11:11 | disposition home or self-care (01) ==
LOC: ORWHC2ENDO 08:59
PROVIDERS: ATTEND Internal Medicine Gastroenterology
DX: K29.50 Unspecified chronic gastritis without bleeding (principal); D64.9 Anemia, unspecified; Z87.19 Personal history of other diseases of the digestive system; Z79.01 Long term (current) use of anticoagulants; Z79.899 Other long term (current) drug therapy; Z87.891 Personal history of nicotine dependence; Z80.0 Family history of malignant neoplasm of digestive organs
CPT/HCPCS: 88305; 43239; J2001; J2704

== ENCOUNTER → 2024-06-12 | Outpatient (CLI) | payer MEDICARE ==
--- NOTE | 2024-06-12 10:10 | MR ---
EXAMINATION TYPE: MR Prostate wo/w con DATE OF EXAM: 06/12/2024 COMPARISON: None. INDICATION: Elevated PSA PSA: 19.810 ng/ml on March 31, 2024 Recent Biopsy and Date: None Pathology Report (If Applicable): n/a TECHNIQUE: Examination was performed using a 3T MRI without an endorectal coil. Multiparametric imaging was perf ormed with T2 mutliplanar sequences, axial diffusion weighted imaging and dynamic contrast enhanced i maging, utilizing 12 mL intravenous Gadobutrol gadolinium contrast. FINDINGS: PROSTATE VOLUME: 4.3 cm SI x 3.9 cm AP x 4.4 cm LR Vol= 38.6 cc PSA DENSITY: 0.51 ng/ml/cc Slightly enlarged prostate consistent with BPH. There are linear and wedge-shaped areas of slightly d iminished signal on ADC mapping in the peripheral zone bilaterally. No areas of marked diminished sig nal. Transitional zone is heterogeneous without suspicious area of diminished T2 signal. No areas of suspicious increased or decreased signal on diffusion-weighted imaging. Highest PI-RADS 2 Seminal vesicles are unremarkable. Urinary bladder shows no suspicious wall thickening or significant trabeculation. No obvious destructive osseous lesions. IMPRESSION: Slightly enlarged prostate consistent with BPH. A focus of clinically significant cancer is not identified. Highest Assessment Category: 2 MRI Stage: T0 N0 M0 based on review of pelvic images. False negative rates for MRI range from 5-20% depending on risk profile. Consider imaging guided random biopsy especially if the PSA continues to rise. Assessment Categories: 1 ? Very low (clinically significant cancer is highly unlikely to be present) 2 ? Low (clinically significant cancer is unlikely to be present) 3 ? Intermediate (the presence of clinically significant cancer is equivocal) 4 ? High (clinically significant cancer is likely to be present) 5 ? Very high (clinically significant cancer is highly likely to be present) [facility], , 06/12/2024 10:08 AM
== END | disposition home or self-care (01) ==
LOC: RADMRIMAIN 07:12
PROVIDERS: ATTEND Urology
DX: R97.20 Elevated prostate specific antigen [PSA] (principal); N40.0 Benign prostatic hyperplasia without lower urinary tract symptoms
CPT/HCPCS: 72197; A9585